=== PATIENT | male | born 1960 | race Caucasian/White ===

== ENCOUNTER → 2016-10-06 | Outpatient (CLI) | payer OTHER ==
[~2016-10-06] MED LIST: ASPI81TA28 PO; ATOR-24 PO; B-COTAB18; CLOP1TAB15 PO; DLN/100 PO; DONE1TAB26; LEVO200T PO; LEVO300T2 PO; LISI1TAB3 PO; PHN/100 PO; PRLSR20 PO
[2016-10-06 09:25] LABS: BASO % 0.3 %; BASO ABS # 0.02 K/uL (0-0.2); COMPLETE YES; EOS % 6.8 %; HEMATOCRIT 43.3 % (42-52); IG% 0.3 %; LYMPH % 28.1 %; LYMPH ABS # 1.85 K/uL (1.2-3.4); MEAN CELL VOLUME 87.7 fL (80-100); MEAN CORPUSCULAR HEMOGLOBIN 30.6 pg (25-34); MEAN CORPUSCULAR HGB CONC 34.9 g/dl (32-36); MEAN PLATELET VOLUME 8.8 fL (7.4-10.4); MONO % 6.4 %; NEUT % 58.1 %; PLATELET COUNT 159 K/uL (130-400); RED BLOOD COUNT 4.94 M/uL (4.7-6.1); WHITE BLOOD COUNT 6.59 K/uL (4.8-10.8)
[2016-10-06 09:42] LABS: ALT/SGPT 27 U/L (12-78); BLOOD UREA NITROGEN 24 mg/dl (7-18); BUN/CREATININE RATIO 25.5 (10-20); CALCIUM 8.9 mg/dl (8.5-10.1); CARBON DIOXIDE 26 mmol/L (21-32); CHLORIDE 107 mmol/L (98-107); CHOLESTEROL 186 mg/dl (0-200); CREATININE 0.95 mg/dl (0.60-1.40); ESTIMATED AVERAGE GLUCOSE 111 mg/dl; GLUCOSE 104 mg/dl (70-99); HA1C FLAG Normal (Normal); POTASSIUM 4.2 mmol/L (3.5-5.1); SODIUM 140 mmol/L (136-145)
[2016-10-06 09:53] LABS: ALKALINE PHOSPHATASE 88 U/L (45-117); AST/SGOT 16 U/L (15-37); CHOLESTEROL/HDL RATIO 4.2; HDL CHOLESTEROL 44 mg/dl; LDL CHOLESTEROL CALCULATED 121 mg/dl; TRIGLYCERIDES 106 mg/dl (0-150); VERY LOW DENSITY LIPOPROT CALC 21 mg/dl
== END | disposition home or self-care (01) ==
LOC: C.LAB1850 07:07
PROVIDERS: ATTEND Family Medicine
DX: I10 Essential (primary) hypertension (principal); G40.909 Epilepsy, unspecified, not intractable, without status epilepticus; E78.5 Hyperlipidemia, unspecified; E03.9 Hypothyroidism, unspecified; R73.03 Prediabetes

== ENCOUNTER → 2017-05-03 | Outpatient (CLI) | payer OTHER ==
[2017-05-03 09:50] LABS: ALT/SGPT 23 U/L (12-78); BLOOD UREA NITROGEN 18 mg/dl (7-18); BUN/CREATININE RATIO 18.9 (10-20); CALCIUM 8.8 mg/dl (8.5-10.1); CARBON DIOXIDE 26 mmol/L (21-32); CHLORIDE 107 mmol/L (98-107); CREATININE 0.94 mg/dl (0.60-1.40); GLUCOSE 110 mg/dl (70-99); POTASSIUM 4.2 mmol/L (3.5-5.1); SODIUM 140 mmol/L (136-145)
[2017-05-03 10:00] LABS: ALB/GLOB RATIO 1.1 (0.9-2); ALKALINE PHOSPHATASE 79 U/L (45-117); AST/SGOT 17 U/L (15-37); CHOLESTEROL 180 mg/dl (0-200); CHOLESTEROL/HDL RATIO 3.9; HDL CHOLESTEROL 46 mg/dl; LDL CHOLESTEROL CALCULATED 111 mg/dl; TRIGLYCERIDES 113 mg/dl (0-150); VERY LOW DENSITY LIPOPROT CALC 23 mg/dl
[2017-05-03 10:55] LABS: ESTIMATED AVERAGE GLUCOSE 111 mg/dl; HA1C FLAG Normal (Normal)
== END | disposition home or self-care (01) ==
LOC: C.LAB1850 06:50
PROVIDERS: ATTEND Family Medicine
DX: E78.5 Hyperlipidemia, unspecified (principal); E03.9 Hypothyroidism, unspecified; R73.03 Prediabetes; I10 Essential (primary) hypertension; Z11.59 Encounter for screening for other viral diseases

== ENCOUNTER → 2017-05-26 | Outpatient (CLI) | payer OTHER ==
--- NOTE | 2017-05-26 13:22 | DIAGNOSTIC IMAGING REPORT ---
R VENOUS DOPP LOWER EXT UNILAT CLINICAL HISTORY: Right leg swellingdistal right lower extremity swelling TECHNIQUE: Ultrasound COMPARISON STUDY: None FINDINGS: Series negative for deep venous thrombosis. Compressibility and augmentation characteristics are unremarkable. There are findings of superficial thrombophlebitis involving the greater saphenous vein from the knee to ankle. IMPRESSION: 1. Superficial thrombophlebitis involving the lower greater saphenous vein . 2. Study is negative for deep venous thrombosis. The above report was generated using voice recognition software. It may contain grammatical, syntax or spelling errors. Electronically signed by: Kb Craven M.D. 05/26/2017 1:21 PM Dictated Date/Time: 05/26/2017 1:20 PM
== END | disposition home or self-care (01) ==
LOC: C.ULTRBC 12:40
PROVIDERS: ATTEND Neuromusculoskeletal Medicine & OMM
DX: M79.89 Other specified soft tissue disorders (principal); I80.01 Phlebitis and thrombophlebitis of superficial vessels of right lower extremity

== ENCOUNTER 2017-09-24 18:34 | Emergency (ER) | payer OTHER ==
[~2017-09-24] VITALS: Ht 182.9 cm; Wt 138.4 kg
[~2017-09-24 18:34] MED LIST changes: -DONE1TAB26; +DONE1TAB26 PO
[2017-09-24 18:39] VITALS: TEMP 36.9; Ht 182.9 cm; Wt 138.4 kg
--- NOTE | 2017-09-24 19:07 | EMERGENCY ROOM VISIT NOTE ---
History Report prepared by Jerry: Richie Armenta Under the Supervision of: Dr. Timo Joiner M.D. First contact with patient: 18:44 Chief Complaint: LEG PAIN,LEG INJURY Stated Complaint: RT LEG PAIN, WARM TO TOUCH History of Present Illness The patient is a 56 year old white male with a past medical history of blood clots, HTN, HLD, CVA, GERD, seizures, and memory loss who presents to the ED with a cc of constant right leg bruising beginning last night. The patient states he was recently on a 3 hour long car trip a couple of days ago. He states that he noticed last night he started to experience symptoms that were similar to his previous blood clots. Positive right leg erythema, right leg warmth. Negative SOB, chest pains, nausea, vomiting. The patient states that he had a similar experience in the past, which he was prescribed Fondaparinux for 45 days for. He reports he was taken off the medication without an ultrasound follow up. The patient states he takes Aspirin and Plavix for his history of a stroke, which he has visual deficits from. Source of History: patient Onset: last night Position: leg (right) Quality: other (bruising) Timing: constant Associated Symptoms: No chest pain, No SOB, No nausea, No vomiting Note: Associated symptoms: right leg erythema and warmth Review of Systems See HPI for pertinent positives and negatives. A total of ten systems were reviewed and were otherwise negative. Past Medical & Surgical Medical Problems: (1) Acute Venous Embolism & Thrombosis Unsp Deep Vessels Of Le (2) Anemia Nos (3) Cerebral Art Occlusion Nos Wo Cerebral Infarction (4) Diab Zakiya Wo Compl, Type Ii Or Unspec Type, Not Uncntrld (5) Hypertension Nos Family History Patient reports no known family medical history. Social History Smoking Status: Former Smoker Alcohol Use: none Marital Status: Housing Status: lives with family Occupation Status: employed Current/Historical Medications Scheduled Aspirin (Aspirin Ec), 81 MG PO DAILY Clopidogrel (Plavix), 75 MG PO DAILY Donepezil Hydrochloride (Donepezil Hcl), 10 MG PO QAM Ferrous Sulfate (Kp Ferrous Sulfate), 325 MG PO MWF Levothyroxine Sodium (Levothyroxine Sodium), 375 MCG PO DAILY Lisinopril (Zestril), 40 MG PO QAM Omeprazole (Prilosec), 20 MG PO BID Phenytoin Sodium (Dilantin), 200 MG PO QAM Phenytoin Sodium (Dilantin), 200 MG PO HS Rivaroxaban (Xarelto), 10 MG PO DAILY Simvastatin (Zocor), 40 MG PO HS Miscellaneous Medications B-Complex Vitamins (Vitamin B Complex) Allergies Coded Allergies: No Known Allergies (Unverified , 09/24/17) Physical Exam Vital Signs Date Time Temp Pulse Resp B/P (MAP) Pulse Ox O2 Delivery O2 Flow Rate FiO2 09/24/17 21:42 53 20 135/69 95 Room Air 09/24/17 20:22 53 20 133/84 93 Room Air 09/24/17 18:39 36.9 74 20 157/88 95 Room Air Physical Exam GENERAL: Obese, wears glasses, awake, alert, well-appearing, NAD HENT: Normocephalic, atraumatic. EYES: Normal conjunctiva. Sclera non-icteric. NECK: Supple. No nuchal rigidity. FROM. RESPIRATORY: CTAB, no rhonchi, wheezing, crackles CARDIAC: RRR, no MRG ABDOMEN: Soft, NTND, BS+ MSK: No chest wall TTP, 1-2+ pitting edema RLE, no erythema, no calf pain. NEURO: GCS 15, CN 2-12 intact, moves all 4s on command SKIN: No rash or jaundice noted. [facility] Medical Decision & Procedures ER Provider Diagnostic Interpretation: Radiology results as stated below per my review and radiologist interpretation: R VENOUS DOPP LOWER EXT UNILAT CLINICAL HISTORY: 56 years-old Male presenting with prior h/o DVT in RLE, now w/ swelling, recent car travel. TECHNIQUE: Real-time grayscale and color and spectral Doppler ultrasound imaging of the veins of the right lower extremity was performed. Compression and augmentation were also utilized. COMPARISON: 05/26/2017. FINDINGS: Right: Common femoral vein: Patent. Greater saphenous vein: Filling defect consistent with chronic thrombus in the greater saphenous vein extending from the calf. This appears nearly occlusive. Deep femoral vein: Patent. Femoral vein: Patent. Popliteal vein: Patent. Calf veins: Limited visualization. Other: None. IMPRESSION: 1. No evidence of deep venous thrombosis. 2. Chronic superficial venous thrombosis in the greater saphenous vein. Electronically signed by: Brent Fernandes M.D. 09/24/2017 9:05 PM Dictated Date/Time: 09/24/2017 9:03 PM Laboratory Results 09/24/17 18:08 Red Blood Count 4.60, Mean Corpuscular Volume 88.0, Mean Corpuscular Hemoglobin 31.1, Mean Corpuscular Hemoglobin Concent 35.3, Mean Platelet Volume 8.5, Neutrophils (%) (Auto) 53.9, Lymphocytes (%) (Auto) 32.5, Monocytes (%) (Auto) 6.7, Eosinophils (%) (Auto) 6.1, Basophils (%) (Auto) 0.4, Neutrophils # (Auto) 3.79, Lymphocytes # (Auto) 2.29, Monocytes # (Auto) 0.47, Eosinophils # (Auto) 0.43, Basophils # (Auto) 0.03 09/24/17 18:08 Test 09/24/17 18:08 White Blood Count 7.04 K/uL (4.8-10.8) Red Blood Count 4.60 M/uL (4.7-6.1) Hemoglobin 14.3 g/dL (14.0-18.0) Hematocrit 40.5 % (42-52) Mean Corpuscular Volume 88.0 fL (80-100) Mean Corpuscular Hemoglobin 31.1 pg (25-34) Mean Corpuscular Hemoglobin Concent 35.3 g/dl (32-36) Platelet Count 154 K/uL (130-400) Mean Platelet Volume 8.5 fL (7.4-10.4) Neutrophils (%) (Auto) 53.9 % Lymphocytes (%) (Auto) 32.5 % Monocytes (%) (Auto) 6.7 % Eosinophils (%) (Auto) 6.1 % Basophils (%) (Auto) 0.4 % Neutrophils # (Auto) 3.79 K/uL (1.4-6.5) Lymphocytes # (Auto) 2.29 K/uL (1.2-3.4) Monocytes # (Auto) 0.47 K/uL (0.11-0.59) Eosinophils # (Auto) 0.43 K/uL (0-0.5) Basophils # (Auto) 0.03 K/uL (0-0.2) RDW Standard Deviation 47.4 fL (36.4-46.3) RDW Coefficient of Variation 14.8 % (11.5-14.5) Immature Granulocyte % (Auto) 0.4 % Immature Granulocyte # (Auto) 0.03 K/uL (0.00-0.02) Prothrombin Time 10.5 SECONDS (9.0-12.0) Prothromb Time International Ratio 1.0 (0.9-1.1) Activated Partial Thromboplast Time 24.5 SECONDS (21.0-31.0) Partial Thromboplastin Ratio 0.9 Anion Gap 6.0 mmol/L (3-11) Est Creatinine Clear Calc Drug Dose 108.5 ml/min Estimated GFR () 88.2 Estimated GFR (Non- 76.1 BUN/Creatinine Ratio 22.3 (10-20) Calcium Level 9.0 mg/dl (8.5-10.1) Total Bilirubin 0.2 mg/dl (0.2-1) Direct Bilirubin < 0.1 mg/dl (0-0.2) Aspartate Amino Transf (AST/SGOT) 15 U/L (15-37) Alanine Aminotransferase (ALT/SGPT) 25 U/L (12-78) Alkaline Phosphatase 80 U/L (45-117) Total Protein 6.9 gm/dl (6.4-8.2) Albumin 3.5 gm/dl (3.4-5.0) Lipase 114 U/L (73-393) Laboratory results reviewed by ms ED Course 1851: The patient was evaluated in room A11B. A complete history and physical exam was performed. 2126: I reevaluated the patient and he is okay with oral medication. I discussed the results and treatment plan. He agrees to the plan and is ready for discharge after medication administration. Medical Decision Triage Nursing notes reviewed. Prior records reviewed. The patient is a 56 year old white male with a past medical history of DVT, HTN , HLD, CVA, GERD, seizures, and memory loss who presents to the ED with a cc of constant right leg bruising beginning last night. The patient's presentation and history were concerning for etiologies such as DVT, musculoskeletal, infection, joint effusion, trauma, lymphedema, idiopathic , CHF, as well as others were entertained. Patient was seen and evaluated at the bedside. Patient was concerned that he was developing a blood clot. Patient did state that he did have recent car travel that did take more than several hours as he did drive to [place] for an appointment for his . The patient has had DVT 2 in the past. Patient also does take aspirin and Plavix for a prior history of CVA. 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 Patient also does have some memory problems for which she does take donepezil. Patient was on fondaparinux the last time he had his DVT which is in May. He was taken off this after about 45 days treatment. He did not have any repeat ultrasound. Patient does have some notable swelling in his right lower extremity. Patient otherwise is very well-appearing does not complain of any chest pain or shortness of breath. Patient did have blood work completed along with a DVT ultrasound. Patient's blood work was fairly unremarkable. Patient ultrasound did show a chronic superficial thrombosis of the greater saphenous vein. This would be considered in SVT. Given the patient has had recurrence of this I did discuss options. We will start him on Xarelto 10 mg for 45 days. The patient is planning to see his primary care physician within the week. Patient was also told to hold his aspirin for the time being while he is taking Plavix and Xarelto. Patient was given a first dose here. Patient was told to return if he had any shortness of breath, hemoptysis, chest pains or worsening lower extremity swelling. Patient was also given tips for how to help with his lower extremely swelling. Patient was deemed suitable for outpatient follow-up treatment at this time. Patient was given strict follow-up, discharge, and return precautions. All questions were answered. Patient was deemed suitable for outpatient follow-up at this time. Patient agreed with the plan of care and was safely discharged home. Medication Reconcilliation Current Medication List: was personally reviewed by me Blood Pressure Screening Patient's blood pressure: Normal blood pressure Impression Primary Impression: Chronic superficial venous thrombosis of lower extremity Additional Impression: Swelling of right lower extremity Scribe Attestation The scribe's documentation has been prepared under my direction and personally reviewed by me in its entirety. I confirm that the note above accurately reflects all work, treatment, procedures, and medical decision making performed by me. Departure Information Dispostion Home / Self-Care Prescriptions Rivaroxaban (XARELTO) 10 Mg Tab 10 MG PO DAILY for 45 Days, #45 TAB Prov: Timo Joiner M.D. 09/24/17 Referrals Moody Dolan D.O. (PCP) Patient Instructions ED Leg Swelling Unilateral, ED RICE, [facility] Additional Instructions Please return to the emergency department if you have worsening or recurrent symptoms not amenable to at-home treatment. Please call for a follow-up appointment with her primary care physician. Please take your medications as prescribed. If you have other concerns and/or complaints please feel free to also call your primary care physician's office or return the ED for further evaluation, management, and treatment. You may take tylenol 650 mg every 6 hours as needed for pain. Please stop taking her aspirin until at least you follow-up with your primary care physician. You may continue to take Xarelto and Plavix. Please return if you have shortness of breath, chest pain, or coughing up blood. Take your medications as prescribed. You have been examined and treated today on an emergency basis only. This is not a substitute for, or an effort to provide, complete comprehensive medical care. It is impossible to recognize and treat all injuries or illnesses in a single emergency department visit. It is therefore important that you follow up closely with [facility], your PCP, and/or your specialist(s). Call as soon as possible for an appointment. Thank you for your time and consideration. I look forward to speaking with you again soon. Please don't hesitate to call us if you have any questions. Problem Qualifiers Primary Impression: Chronic superficial venous thrombosis of lower extremity Laterality: right Qualified Codes: I82.811 - Embolism and thrombosis of superficial veins of right lower extremity
[2017-09-24 19:19] LABS: BASO % 0.4 %; BASO ABS # 0.03 K/uL (0-0.2); EOS % 6.1 %; EOS ABS # 0.43 K/uL (0-0.5); HEMATOCRIT 40.5 % (42-52); HEMOGLOBIN 14.3 g/dL (14.0-18.0); IG# 0.03 K/uL (0.00-0.02); LYMPH % 32.5 %; LYMPH ABS # 2.29 K/uL (1.2-3.4); MEAN CORPUSCULAR HEMOGLOBIN 31.1 pg (25-34); MEAN CORPUSCULAR HGB CONC 35.3 g/dl (32-36); MEAN PLATELET VOLUME 8.5 fL (7.4-10.4); MONO % 6.7 %; MONO ABS # 0.47 K/uL (0.11-0.59); NEUT % 53.9 %; NEUT ABS # 3.79 K/uL (1.4-6.5); PLATELET COUNT 154 K/uL (130-400); RED CELL DISTRIBUTION WIDTH CV 14.8 % (11.5-14.5); RED CELL DISTRIBUTION WIDTH SD 47.4 fL (36.4-46.3); WHITE BLOOD COUNT 7.04 K/uL (4.8-10.8)
[2017-09-24 19:27] LABS: PTT PATIENT 24.5 SECONDS (21.0-31.0)
[2017-09-24] MEDS ORDERED: FERR1TAB13 PO (19:31)
[2017-09-24] MEDS ORDERED: LEVO125T5 PO (19:31)
[2017-09-24] MEDS ORDERED: SIMV40TA2 PO (19:31)
[2017-09-24] MEDS ORDERED: LISI40TA PO (19:31)
[2017-09-24 19:38] LABS: ALBUMIN 3.5 gm/dl (3.4-5.0); BLOOD UREA NITROGEN 24 mg/dl (7-18); CARBON DIOXIDE 27 mmol/L (21-32); CREATININE 1.07 mg/dl (0.60-1.40); GLUCOSE 94 mg/dl (70-99); LIPASE 114 U/L (73-393); SODIUM 139 mmol/L (136-145)
[2017-09-24 19:41] LABS: ALKALINE PHOSPHATASE 80 U/L (45-117); ALT/SGPT 25 U/L (12-78); AST/SGOT 15 U/L (15-37); TOTAL PROTEIN 6.9 gm/dl (6.4-8.2)
--- NOTE | 2017-09-24 21:06 | DIAGNOSTIC IMAGING REPORT ---
R VENOUS DOPP LOWER EXT UNILAT CLINICAL HISTORY: 56 years-old Male presenting with prior h/o DVT in RLE, now w/ swelling, recent car travel. TECHNIQUE: Real-time grayscale and color and spectral Doppler ultrasound imaging of the veins of the right lower extremity was performed. Compression and augmentation were also utilized. COMPARISON: 05/26/2017. FINDINGS: Right: Common femoral vein: Patent. Greater saphenous vein: Filling defect consistent with chronic thrombus in the greater saphenous vein extending from the calf. This appears nearly occlusive. Deep femoral vein: Patent. Femoral vein: Patent. Popliteal vein: Patent. Calf veins: Limited visualization. Other: None. IMPRESSION: 1. No evidence of deep venous thrombosis. 2. Chronic superficial venous thrombosis in the greater saphenous vein. Electronically signed by: Brent Fernandes M.D. 09/24/2017 9:05 PM Dictated Date/Time: 09/24/2017 9:03 PM
[2017-09-24] MEDS ORDERED: RIVAROXABAN 20 MG TAB PO STA (21:31)
[2017-09-24 21:42] VITALS: BP 135/69; PULSE 53; O2SAT 95
[2017-09-24] MEDS ORDERED: RIVA1TAB PO (21:50)
== END 2017-09-24 22:00 | disposition home or self-care (01) ==
LOC: C.EDB 18:35 → C.EDA 22:00
DX: I82.811 Embolism and thrombosis of superficial veins of right lower extremity (principal); R60.0 Localized edema; I10 Essential (primary) hypertension; E78.5 Hyperlipidemia, unspecified; K21.9 Gastro-esophageal reflux disease without esophagitis; I69.398 Other sequelae of cerebral infarction; H53.40 Unspecified visual field defects; D64.9 Anemia, unspecified; E11.9 Type 2 diabetes mellitus without complications; Z86.718 Personal history of other venous thrombosis and embolism; Z87.891 Personal history of nicotine dependence; Z79.82 Long term (current) use of aspirin; Z79.01 Long term (current) use of anticoagulants

== ENCOUNTER → 2017-11-12 | Outpatient (CLI) | payer OTHER ==
[~2017-11-12] MED LIST changes: -ATOR-24 PO; +FERR1TAB13 PO; +LEVO125T5 PO; -LEVO200T PO; -LEVO300T2 PO; -LISI1TAB3 PO; +LISI40TA PO; +RIVA1TAB PO; +SIMV40TA2 PO
[2017-11-12 10:07] LABS: ALT/SGPT 29 U/L (12-78); BLOOD UREA NITROGEN 15 mg/dl (7-18); CARBON DIOXIDE 30 mmol/L (21-32); CREATININE 0.94 mg/dl (0.60-1.40); GLUCOSE 107 mg/dl (70-99); POTASSIUM 4.3 mmol/L (3.5-5.1); SODIUM 138 mmol/L (136-145)
[2017-11-12 10:18] LABS: CHOLESTEROL 155 mg/dl (0-200); LDL CHOLESTEROL CALCULATED 93 mg/dl
== END ==
LOC: C.LABBC 07:49
PROVIDERS: ATTEND Family Medicine
DX: I10 Essential (primary) hypertension (principal); E78.5 Hyperlipidemia, unspecified; E03.9 Hypothyroidism, unspecified; G40.909 Epilepsy, unspecified, not intractable, without status epilepticus; Z00.00 Encounter for general adult medical examination without abnormal findings; Z12.5 Encounter for screening for malignant neoplasm of prostate

== ENCOUNTER 2023-10-27 10:24 | Inpatient (IN) ==
[2023-10-27 11:12] LABS: Basophils # (auto) 0.02 K/uL (0.00-0.20); Basophils % (auto) 0.4 %; Eosinophils # (auto) 0.26 K/uL (0.00-0.50); Eosinophils % (auto) 4.7 %; Hematocrit (blood only) 41.2 % (42.0-52.0); Hemoglobin 13.9 g/dl (14.0-18.0); Immature Granulocytes # (auto) 0.01 K/uL (0.01-0.20); Immature Granulocytes % (auto) 0.2 %; Lymphocytes # (auto) 1.84 K/uL (1.20-3.40); Lymphocytes % (auto) 33.2 %; Mean Corpuscular Hemoglobin 29.8 pg (25.0-34.0); Mean Corpuscular Hgb Conc 33.7 g/dL (32.0-36.0); Mean Corpuscular Volume 88.2 fL (80.0-100.0); Monocytes # (auto) 0.31 K/uL (0.11-0.59); Monocytes % (auto) 5.6 %; Neutrophils # (auto) 3.11 K/uL (1.40-6.50); Neutrophils % (auto) 55.9 %; Platelet Count 156 K/uL (130-400); RDW Coefficient of Variation 15.5 % (11.5-14.5); Red Blood Count 4.67 M/uL (4.70-6.10); White Blood Count 5.55 K/ul (4.8-10.8)
[2023-10-27 11:26] LABS: Alanine Aminotransferase 11 U/L (7-52); Albumin Globulin Ratio 1.4 (0.9-2); Albumin Level 3.9 gm/dl (3.4-5.0); Alkaline Phosphatase 78 U/L (34-104); Anion Gap 4 (3-11); Aspartate Aminotransferase 15 U/L (13-39); Bilirubin,Total 0.5 mg/dl (0.2-1.0); Blood Urea Nitrogen 19 mg/dl (6-23); Calcium 9.6 mg/dl (8.6-10.3); Carbon Dioxide 31 mmol/L (21-32); Chloride 106 mmol/L (98-107); Est GFR (African American) 97.7 ml/min; Est GFR (Non-African American) 84.3 ml/min; Globulin 2.7 gm/dl (2.5-4.0); Glucose 99 mg/dl (70-99(Fasting)); Potassium 4.1 mmol/L (3.5-5.1); Sodium 141 mmol/L (136-145); Total Protein 6.6 gm/dl (6.0-8.3)
[2023-10-27 11:28] LABS: Troponin I High Sensitivity 5.2 pg/ml (0-20)
--- NOTE | 2023-10-27 11:28 | XRay Report ---
XR chest 1V not portable HISTORY: 62 years-old Male Chest pain, nonspecific COMPARISON: 05/14/2022 TECHNIQUE: PA view of the chest FINDINGS: Cardiac silhouette is enlarged. Large hiatal hernia. No pneumothorax, pleural effusion or overt pulmo nary edema. Mild bibasilar atelectasis. Calcified edema within the lungs. Bones appear grossly intact . IMPRESSION: 1. Cardiomegaly without acute process. 2. Large hiatal hernia. ACT 112: Negative or not required by law. The above report was generated using voice recognition software. It may contain grammatical, syntax o r spelling errors. Electronically signed by: Andre Mayfield M.D. 10/27/2023 11:26 AM
[2023-10-27 11:33] LABS: Partial Thromboplastin Ratio 0.9; Partial Thromboplastin Time 24 Seconds (21-31); Prothrombin Time 11.1 Seconds (9.0-12.0)
--- NOTE | 2023-10-27 12:43 | Emergency Department Note ---
Impression & Plan Complicated urinary tract infection, Elevated TSH, Confusion, Leg swelling ED Provider Note NAME: ARIANNE DICKERSON AGE: 62 SEX: M : 1960 ARRIVES VIA: Walk-In INFORMANT: Patient, ED PROVIDER(S): Timo Joiner MD CHIEF COMPLAINT: Confusion, slurred speech, weakness, elevated TSH, leg swelling, hallucinations MEDICAL DECISION MAKING: Patient presents due to concern for the above. IV was established and blood work was obtained. VBG ammonia urinalysis CT head and CT angiography of the head and neck were ordered. Blood shows a normal white count with a hemoglobin of 13.9 virtually normal with a normal platelet count kidney function is unremarkable. ABG with hypercarbia but normal VBG pH kidney function is unremarkable with normal electrolytes. BNP troponin not elevated ammonia is not elevated. Urinalysis does show concern for infection given the patient's positive for nitrites leuks and whites with no significant epithelial cells. Chest x-ray without pneumonia. Patient CT angiography of the neck is negative CT angiography of the head shows old left occipital infarct. CT of the head shows no acute ICH. Given the chronicity of the patient's symptoms I did speak with the on-call hospitalist service and the patient was admitted by Dr. Lebron. Discussion w/ other healthcare providers: Hany Dawn PA-C and Dr. Lebron inpatient medicine service Prior /Outside records reviewed: None Differential diagnosis: Infection, dehydration, metabolic abnormality, hypo/hyperglycemia, electrolyte imbalance, anemia, UTI, pneumonia, thyroid dysfunction among others were considered. Diagnostics, as interpreted by me: ECG: Likely sinus with possible junctional with a ventricular rate rate of 52 normal QRS duration, left axis deviation no obvious ST elevations Cardiac monitoring: An order was placed for continuous cardiac monitoring. The monitor shows a rate of 53 with regular rhythm. Patient was placed on pulse oximetry Medical decision rules: None Imaging studies: I informally interpreted the patient's Chest x-ray which does not show obvious pneumonia or pneumothorax. with formal report to follow. HPI: Patient does present for multiple complaints. The patient reportedly has had some increasing weakness confusion and slurred speech was developed over the weekend. The patient had been seen in the outpatient setting did have blood work completed was noted to have an elevated TSH. The patient does take thyroxine replacement. Patient reportedly is not super compliant with medications but the patient significant other bedside has been ensuring that the patient is receiving his medications this week. Patient admits to not being fully compliant all the time. Patient reportedly has been hallucinating having full on conversations with people that are not there. The patient denies any head or neck pain. Patient does have a prior history of stroke in the early . The patient does have deficits of visual field deficits as well as numbness in the foot. Patient has also noticed bilateral lower extremity swelling but it is worse in the right. The patient does have a prior history of DVT and had been on blood thinners for a period of time but no longer does. Patient was so weak that he slumped into his but did not fall to the ground. No head strike or LOC. PAST MEDICAL HISTORY: See Below PAST SURGICAL HISTORY: See Below SOCIAL HISTORY: See Below HOME MEDICATIONS: See Below ALLERGIES: See Below VITALS: See Below PHYSICAL EXAMINATION: GENERAL: NAD, non-toxic. Wearing glasses EYE EXAM: Normal conjunctiva. PERRL, no anisocoria and EOM's grossly intact w/o pain. OROPHARYNX: Moist mucus membranes, grossly normal dentition. NECK: Trachea midline, no stridor. LUNGS: Clear to auscultation. Normal chest wall mechanics. HEART: NSR, no MRG. ABDOMEN: Abdomen soft, non-tender, no masses, no rebound or guarding. BACK: No CVA TTP. SKIN: No rashes and no bruising. UPPER EXTREMITIES: Upper extremities are grossly normal. LOWER EXTREMITIES: Grossly normal, bilateral lower extremity edema right greater than left. NEURO EXAM: A&O x3, cranial nerves II-XII grossly intact, normal speech, moves all 4 extremities. Good [id number]. Past Med/Surg History Medical History History of BPH Hyperlipidemia Methylenetetrahydrofolate reductase deficiency Allergic rhinitis seasonal Superficial thrombophlebitis Deep vein blood clot of right lower extremity twice, ~4-5 years ago, came to [place] ER>on plavix and baby aspirin>f/u dr mares, [place] GERD (gastroesophageal reflux disease) Hypothyroid Seizure 2003, within 3 weeks from the 1 year anniversary of his stroke, Gran Mal seizure>due to his stroke Hypertension CVA (cerebral vascular accident) 2002, [facility] [place]>25% blind in both eyes, short term memory loss, numbness tingling 2 fingers in RT hand, numbness in rt foot-residual symptoms; f/u PCP Surgical History History of esophagogastroduodenoscopy (EGD) Hx of colonoscopy History of repair of hiatal hernia original sx 03/1996; pt currently has a tear in the lining and his pancreas and stomach "float freely in his chest cavity" History of arthrodesis (1971) L4-L5 History of back surgery once at age 9 H/O hemorrhoidectomy Family History Father Acute myocardial infarction Myocardial infarction Grandmother (Maternal) Diabetes Family/Other Diabetes Mother Diabetes Brother COPD (chronic obstructive pulmonary disease) Congestive heart failure Brother No problems noted. Sister No problems noted. Son No problems noted. Daughter No problems noted. Denies family history of Colon cancer Ovarian cancer Prostate cancer Breast cancer Social History Smoking Status: Never smoker Age Quit Using Tobacco: 27; Second Hand Exposure: No; Do You Dip or Chew Tobacco: No; Hx Alcohol Use: No ("not for the last 35-40 years") Hx Substance Use: No Preferred Language: Guatemalan Communication Ability: Effective Visual Impairment: Limited Hearing Ability: Normal [employer] Required: No Beliefs That Will Affect Care: None marital status: Current Living Situation: Spouse current occupational status: retired current occupation: [employer] How many Children do You have: 2 Feels Safe at Home: Yes Childhood Exposure to Second-Hand Smoke: Yes Diet: regular Diet Comment: regular caffeine: Yes during the past year weight has: remained stable Dental Care, Regularly: Yes Physical Activity Frequency: Daily Seatbelt Use: always Sunscreen Use: No Assistive Devices: Glasses Allergies Allergies Allergy/AdvReac Type Severity Reaction Status Date / Time No Known Drug Allergies Allergy Unknown Verified 10/27/23 14:53 Home Meds Home Medications Medication Instructions Recorded Confirmed aspirin 81 mg chewable tablet 81 mg PO QAM 05/14/22 10/27/23 tadalafil 20 mg tablet (Cialis) 20 mg PO UD PRN sexual activity 05/14/22 10/27/23 clopidogrel 75 mg tablet 75 mg PO QAM 10/27/23 10/27/23 levothyroxine 25 mcg tablet See Rx Instructions .Route .COMPLEX 10/27/23 10/27/23 levothyroxine 300 mcg tablet See Rx Instructions .Route .COMPLEX 10/27/23 10/27/23 vibegron 75 mg tablet (Gemtesa) 75 mg PO DAILY PRN Issues w/ 10/27/23 10/27/23 Urgency of urination Previous Rx's Medication Instructions Recorded oxybutynin chloride 5 mg 5 mg PO DAILY #7 tabs 05/19/22 tablet,extended release 24 hr (Ditropan XL) simvastatin 40 mg tablet 40 mg PO HS #90 tabs 01/06/23 phenytoin sodium extended 100 mg 200 mg (2 x 100 mg) PO BID #120 01/18/23 capsule caps tamsulosin 0.4 mg capsule 0.4 mg PO QAM #90 caps 03/15/23 lisinopril 40 mg tablet 40 mg PO QAM #90 tabs 05/10/23 omeprazole 20 mg capsule,delayed 20 mg PO BID #180 caps 06/07/23 release Results & Data (ED) Vital Signs Vital Signs - 24 hr 10/27/23 10:28 10/27/23 12:39 10/27/23 15:22 Temperature 36.6 C Temperature Source Temporal Artery Scan Pulse Rate 54 L Pulse Rate [Apical] 48 L 48 L Respiratory Rate 20 22 20 Respiratory Effort / Characteristics Non-Labored Respiratory Depth Normal Blood Pressure 117/72 Blood Pressure [Left Arm] 157/79 H 137/79 Blood Pressure Mean 87 Blood Pressure Mean [Left Arm] 105 98 Pulse Oximetry 93 96 92 Oxygen Delivery Method Room Air Room Air Room Air Sepsis Recent Fever Within 48 Hours No Sepsis New/Unexplained Change in Mental Status No Sepsis Action Taken by Nursing No Action Required Home Medications Current Medication List: was personally reviewed by me Laboratory Data Attestation: I reviewed the patient's lab results. 10/27/23 10:39 10/27/23 10:39 Lab Results 10/27/23 10/27/23 10/27/23 Range/Units 10:39 14:30 Unknown WBC 5.55 (4.8-10.8) K/ul RBC 4.67 L (4.70-6.10) M/uL Hgb 13.9 L (14.0-18.0) g/dl Hct 41.2 L (42.0-52.0) % MCV 88.2 (80.0-100.0) fL MCH 29.8 (25.0-34.0) pg MCHC 33.7 (32.0-36.0) g/dL RDW Std Deviation 50.0 H (36.4-46.3) fL RDW Coeff of Gloria 15.5 H (11.5-14.5) % Plt Count 156 (130-400) K/uL MPV 9.0 L (9.4-12.4) fL Immature Gran % (Auto) 0.2 % Neut % (Auto) 55.9 % Lymph % (Auto) 33.2 % [place] % (Auto) 5.6 % Eos % (Auto) 4.7 % Baso % (Auto) 0.4 % Neut # (Auto) 3.11 (1.40-6.50) K/uL Lymph # (Auto) 1.84 (1.20-3.40) K/uL [place] # (Auto) 0.31 (0.11-0.59) K/uL Eos # (Auto) 0.26 (0.00-0.50) K/uL Baso # (Auto) 0.02 (0.00-0.20) K/uL Immature Gran # (Auto) 0.01 (0.01-0.20) K/uL PT 11.1 (9.0-12.0) Seconds INR 1.0 (0.9-1.1) APTT 24 (21-31) Seconds PTT Ratio 0.9 VBG pH 7.37 (7.36-7.41) VBG pCO2 54 H (38-50) mmHg VBG pO2 21 mmHg VBG HCO3 31 mmol/L VBG O2 Saturation < 60.0 % VBG Base Excess 4.4 mEq/L Sodium 141 (136-145) mmol/L Potassium 4.1 (3.5-5.1) mmol/L Chloride 106 (98-107) mmol/L Carbon Dioxide 31 (21-32) mmol/L Anion Gap 4 (3-11) BUN 19 (6-23) mg/dl Creatinine 0.95 (0.6-1.4) mg/dl Est Cr Clr Drug Dosing Not Reportable Est GFR ( Amer) 97.7 ml/min Est GFR (Non-Af Amer) 84.3 ml/min BUN/Creatinine Ratio 20.0 (10-20) Glucose 99 (70-99(Fasting)) mg/dl Calcium 9.6 (8.6-10.3) mg/dl Total Bilirubin 0.5 (0.2-1.0) mg/dl AST 15 (13-39) U/L ALT 11 (7-52) U/L Alkaline Phosphatase 78 (34-104) U/L Ammonia 13.0 L (18-72) umol/L Troponin I High Sens 5.2 (0-20) pg/ml B-Natriuretic Peptide 51 (0-100) pg/ml Total Protein 6.6 (6.0-8.3) gm/dl Albumin 3.9 (3.4-5.0) gm/dl Globulin 2.7 (2.5-4.0) gm/dl Albumin/Globulin Ratio 1.4 (0.9-2) TSH 5.812 H (0.300-4.500) uIu/ml Free T4 1.02 (0.61-1.60) ng/dl Urine Color Dark Yellow Urine Appearance Clear (Clear) Urine pH 5.5 (4.5-7.5) Ur Specific [place] > 1.045 H (1.000-1.030) Urine Protein Negative (Negative) Urine Glucose (UA) Negative (Negative) Urine Ketones Trace H (Negative) Urine Blood Negative (Negative) Urine Nitrite Positive A (Negative) Urine Bilirubin Negative (Negative) Urine Urobilinogen Negative (Negative) Ur Leukocyte Esterase 1+ H (Negative) Urine WBC (Auto) >30 H (0-5) /hpf Urine RBC (Auto) 0-4 (0-4) /hpf U Hyaline Cast (Auto) 10-30 H (0-5) /lpf U Epithel Cells (Auto) 0-5 (0-5) /lpf Urine Bacteria (Auto) Negative (Negative) Urine Mucus Present A (None Prsent) Urine Yeast Not Reportable Administered Medications Discontinued Medications Ceftriaxone Sodium (Rocephin) 2,000 mg in 50 mls @ 100 mls/hr IV NOW STA Stop: 10/27/23 15:27 Last Admin: 10/27/23 15:15 Dose: 100 mls/hr Documented By: MISAEL Ioversol (Optiray 320 125ml) 119 ml IV ONCE ONE Stop: 10/27/23 13:16 Last Admin: 10/27/23 13:15 Dose: 119 ml Documented By: EDK Imaging Data Radiologist's Impression: Chest X-Ray 10/27/23 10:53 XR chest 1V not portable HISTORY: 62 years-old Male Chest pain, nonspecific COMPARISON: 05/14/2022 TECHNIQUE: PA view of the chest FINDINGS: Cardiac silhouette is enlarged. Large hiatal hernia. No pneumothorax, pleural effusion or overt pulmonary edema. Mild bibasilar atelectasis. Calcified edema within the lungs. Bones appear grossly intact. IMPRESSION: 1. Cardiomegaly without acute process. 2. Large hiatal hernia. ACT 112: Negative or not required by law. The above report was generated using voice recognition software. It may contain grammatical, syntax or spelling errors. Electronically signed by: Andre Mayfield M.D. 10/27/2023 11:[address] 10/27/23 13:04 CT SCAN OF THE BRAIN WITHOUT IV CONTRAST CLINICAL HISTORY: Strokelike symptoms. Slurred speech. COMPARISON STUDY: MRI of the brain dated 07/10/2023. TECHNIQUE: Unenhanced axial CT scan of the brain is performed from the vertex to the skull base. A dose lowering technique was utilized adhering to the principles of ALARA. FINDINGS: Brain parenchyma: Left occipital encephalomalacia is unchanged and consistent with a remote insult. There is age-related involutional change noting minimal microangiopathic disease. There is no hemorrhage, mass effect, or evidence of acute territorial ischemia by CT criteria. Wood-white matter differentiation is preserved. No extra-axial fluid collection is seen. Ventricles, sulci, cisterns: Prominent secondary to involutional change. Intracranial vasculature: There is atherosclerotic calcification of the cavernous carotid arteries. Calvarium: Unremarkable. Sinuses and mastoids: The visualized paranasal sinuses are clear. There are bilateral mastoid effusions. Orbits: The bony orbits are grossly intact. IMPRESSION: There is no hemorrhage, mass effect, or evidence of acute territorial ischemia by CT criteria. ACT 112: Negative or not required by law. Electronically signed by: Juan Jackson M.D. 10/27/2023 1:26 PM Head CTA 10/27/23 13:04 CTA ANGIOGRAPHY OF THE HEAD CLINICAL HISTORY: h/o CVA, slurred speech COMPARISON STUDY: MRI of the brain May 10, 2013. TECHNIQUE: Helical axial images of the head were obtained following uneventful intravenous administration of 119 cc of Optiray. Sagittal and coronal reconstructions were viewed as well as maximal intensity projections on an independent 3-D workstation. Automated exposure control was utilized for the study. A dose lowering technique was utilized adhering to the principles of ALARA. FINDINGS: Encephalomalacia within left occipital lobe represents an old infarct, as shown on MRI July 10, 2013. Mastoid air cells are largely opacified. Mastoid fluid was shown on previous MRI as well. No acute hemorrhage is identified. Ventricular system is unremarkable. Basal cisterns are patent. There are no extra axial collections. The bilateral M1, M2, A1 and A2 segments are patent. There is no intracranial aneurysm. No central vessel occlusion is identified. Left vertebral artery is dominant and patent. Posterior circulation is intact. IMPRESSION: 1. No central vessel occlusion. No intracranial aneurysm. 2. Old left occipital lobe infarct. 3. Bilateral mastoid effusions, likely chronic. ACT 112: Negative or not required by law. Electronically signed by: Misael Marsh M.D. 10/27/2023 1:50 PM Neck CTA 10/27/23 13:04 CT ANGIOGRAPHY OF THE NECK WITH CONTRAST CLINICAL HISTORY: h/o CVA, slurred speech COMPARISON STUDY: Carotid ultrasound July 10, 2013. Technique: CT angiography of the carotid and vertebral arteries was obtained using Optiray and 3D reconstruction on an independent workstation. NASCET criteria was utilized. Automated exposure control was utilized for the study. A dose lowering technique was utilized adhering to the principles of ALARA. CT DOSE: 1458.97 mGy.cm Findings: Visualized portions of the lung apices are unremarkable. 2.1 cm right lobe hypodense thyroid nodule is incidentally noted. No cervical spine fractures are identified. The bilateral common carotid, cervical internal carotid and vertebral arteries are patent. This exam is mildly compromised by artifact. No stenosis, dissection or aneurysm within the major vessels of the neck is identified. Carotid bifurcations are patent. CTA of the head will be reported separately. There is minimal plaque within the proximal left internal carotid artery. IMPRESSION: No stenosis or dissection within the bilateral common carotid, cervical internal carotid or vertebral arteries. ACT 112: Negative or not required by law. Electronically signed by: Misael Marsh M.D. 10/27/2023 1:43 PM Discharge Plan Visit Data Chief Complaint: Referred by Doctor Stated Complaint: SWOLLEN LEGS, HALLUCINATING ED Provider: Timo Joiner Discharge Problem: Complicated urinary tract infection, Elevated TSH, Confusion, Leg swelling Forms Stand Alone Forms: [facility] [employer] Prescriptions Prescriptions: No Action simvastatin 40 mg tablet 40 mg PO HS Qty: 90 1RF phenytoin sodium extended 100 mg capsule 200 mg PO BID Qty: 120 11RF tamsulosin 0.4 mg capsule 0.4 mg PO QAM Qty: 90 3RF lisinopril 40 mg tablet 40 mg PO QAM Qty: 90 3RF Rx Instructions: TAKE 1 TABLET BY MOUTH EVERY DAY omeprazole 20 mg capsule,delayed release(DR/EC) 20 mg PO BID Qty: 180 3RF aspirin 81 mg Tablet,Chewable 81 mg PO QAM tadalafil [Cialis] 20 mg tablet 20 mg PO UD PRN (Reason: sexual activity) Rx Instructions: administer approximately 30min before sexual activity; do not use more than 1 dose per 24hrs oxybutynin chloride [Ditropan XL] 5 mg tablet extended release 24hr 5 mg PO DAILY Qty: 7 0RF clopidogrel 75 mg tablet 75 mg PO QAM Rx Instructions: take 1 tablet by mouth once daily levothyroxine 300 mcg tablet See Rx Instructions .ROUTE .COMPLEX Rx Instructions: Take 300mcg with 25mcg tab for total of 325mcg once every morning levothyroxine 25 mcg tablet See Rx Instructions .ROUTE .COMPLEX Rx Instructions: Take 25mcg with 300mcg tab for total of 325mcg once every morning Gemtesa 75 mg tablet 75 mg PO DAILY PRN (Reason: Issues w/ Urgency of urination) Referrals Referrals: Evon Forte MD [Primary Care Provider] -
[2023-10-27] MEDS: OPTIRAY 320 125ml IV ONE (13:15)
--- NOTE | 2023-10-27 13:27 | CT Scan Report ---
CT SCAN OF THE BRAIN WITHOUT IV CONTRAST CLINICAL HISTORY: Strokelike symptoms. Slurred speech. COMPARISON STUDY: MRI of the brain dated 07/10/2023. TECHNIQUE: Unenhanced axial CT scan of the brain is performed from the vertex to the skull base. A do se lowering technique was utilized adhering to the principles of ALARA. FINDINGS: Brain parenchyma: Left occipital encephalomalacia is unchanged and consistent with a remote insult. T here is age-related involutional change noting minimal microangiopathic disease. There is no hemorrha ge, mass effect, or evidence of acute territorial ischemia by CT criteria. Wood-white matter differen tiation is preserved. No extra-axial fluid collection is seen. Ventricles, sulci, cisterns: Prominent secondary to involutional change. Intracranial vasculature: There is atherosclerotic calcification of the cavernous carotid arteries. Calvarium: Unremarkable. Sinuses and mastoids: The visualized paranasal sinuses are clear. There are bilateral mastoid effusio ns. Orbits: The bony orbits are grossly intact. IMPRESSION: There is no hemorrhage, mass effect, or evidence of acute territorial ischemia by CT marshall ramos. ACT 112: Negative or not required by law. Electronically signed by: Juan Jackson M.D. 10/27/2023 1:26 PM
[2023-10-27 13:31] LABS: Thyroid Stimulating Hormone 5.812 uIu/ml (0.300-4.500)
[2023-10-27 13:35] LABS: T4 Free Thyroxine 1.02 ng/dl (0.61-1.60)
--- NOTE | 2023-10-27 13:45 | CT Scan Report ---
CT ANGIOGRAPHY OF THE NECK WITH CONTRAST CLINICAL HISTORY: h/o CVA, slurred speech COMPARISON STUDY: Carotid ultrasound July 10, 2013. Technique: CT angiography of the carotid and vertebral arteries was obtained using Optiray and 3D rec onstruction on an independent workstation. NASCET criteria was utilized. Automated exposure control was utilized for the study. A dose lowering technique was utilized adhering to the principles of ALA RA. CT DOSE: 1458.97 mGy.cm Findings: Visualized portions of the lung apices are unremarkable. 2.1 cm right lobe hypodense thyroi d nodule is incidentally noted. No cervical spine fractures are identified. The bilateral common ramachandran tid, cervical internal carotid and vertebral arteries are patent. This exam is mildly compromised by artifact. No stenosis, dissection or aneurysm within the major vessels of the neck is identified. Car otid bifurcations are patent. CTA of the head will be reported separately. There is minimal plaque wi thin the proximal left internal carotid artery. IMPRESSION: No stenosis or dissection within the bilateral common carotid, cervical internal carotid or vertebral arteries. ACT 112: Negative or not required by law. Electronically signed by: Misael Marsh M.D. 10/27/2023 1:43 PM
--- NOTE | 2023-10-27 13:52 | CT Scan Report ---
CTA ANGIOGRAPHY OF THE HEAD CLINICAL HISTORY: h/o CVA, slurred speech COMPARISON STUDY: MRI of the brain May 10, 2013. TECHNIQUE: Helical axial images of the head were obtained following uneventful intravenous administr ation of 119 cc of Optiray. Sagittal and coronal reconstructions were viewed as well as maximal inten sity projections on an independent 3-D workstation. Automated exposure control was utilized for the study. A dose lowering technique was utilized adhering to the principles of ALARA. FINDINGS: Encephalomalacia within left occipital lobe represents an old infarct, as shown on MRI Dece [id number]. Mastoid air cells are largely opacified. Mastoid fluid was shown on previous MRI as we ll. No acute hemorrhage is identified. Ventricular system is unremarkable. Basal cisterns are patent. There are no extra axial collections. The bilateral M1, M2, A1 and A2 segments are patent. There is no intracranial aneurysm. No central vessel occlusion is identified. Left vertebral artery is dominan t and patent. Posterior circulation is intact. IMPRESSION: 1. No central vessel occlusion. No intracranial aneurysm. 2. Old left occipital lobe infarct. 3. Bilateral mastoid effusions, likely chronic. ACT 112: Negative or not required by law. Electronically signed by: Misael Marsh M.D. 10/27/2023 1:50 PM
[2023-10-27 14:02] LABS: Appearance Urine Clear (Clear); Bacteria Urine Automated Negative (Negative); Bilirubin Urine Negative (Negative); Blood Urine Negative (Negative); Color Urine Dark Yellow; Epithelial Cell Urine Auto 0-5 /lpf (0-5); Glucose Urine UA Negative (Negative); Ketones Urine Trace (Negative); Leukocyte Esterase Urine 1+ (Negative); Nitrite Urine Positive (Negative); Protein Urine Negative (Negative); RBC Urine Automated 0-4 /hpf (0-4); Specific Gravity Urine > 1.045 (1.000-1.030); Urobilinogen Urine Negative (Negative); WBC Urine Automated >30 /hpf (0-5); pH Urine 5.5 (4.5-7.5)
[2023-10-27 14:13] LABS: Mucus Urine Present (None Prsent)
[2023-10-27 14:47] LABS: Base Excess VBG 4.4 mEq/L; HCO3 VBG 31 mmol/L; Oxygen Saturation VBG < 60.0 %; PCO2 VBG 54 mmHg (38-50); PO2 VBG 21 mmHg; pH VBG 7.37 (7.36-7.41)
[2023-10-27] MEDS: cefTRIAXone SODIUM 2,000 MG/50 ML BAG IV STA (15:15)
--- NOTE | 2023-10-27 15:46 | History & Physical Report ---
Date of Service October 27, 2023 Assessment & Plan (1) Slurred speech: Plan: -Admit to med/tele -Currently stable but with significant slurred speech, difficulty following commands, ambulatory dysfunction, and increased upper extremity weakness causing him to drop items -Symptoms have been progressing over the past 2-3 weeks -Does have hx of previous CVA approximately 20 years ago -Was seen by his PCP on 10/18 for similar but less severe symptoms, TSH and Phenytoin levels were elevated at that time >He resumed his Levothyroxine and TSH today with free T4 are stable > states that Phenytoin dose and frequency were not changed -At this time the patient has many possible etiologies for his neurologic symptoms including recurrent CVA, Phenytoin toxicity, possible UTI, substance abuse, early onset dementia, undiagnosed ASHISH, Narcolepsy -CT head/brain wo con and CTA of the head/neck were negative for acute findings -CXR negative for acute findings -UA is equivocal at this time, will need to follow urine culture -Phenytoin level is in process -ECG today with new junctional rhythm, unsure if he has been having possible arrhythmias causing blood clots and recurrent CVA -Physical exam is inconsistent with meningitis -VBG today with mild pCO2 elevation of 54, ammonia level was negative, no leukocytosis -Will obtain stat MRI of the brain w/wo con -Will obtain TTE -Will add on urine drug screen and tick borne panel -Fall/aspiration/seizure precautions -Dysphagia screen prior to ordering diet -Hold chemical and mechanical DVT PPX until LE venous dopplers and MRI brain results are back -Continue aspirin and plavix for now -AM CBC, CMP, mag, PT/INR (2) Daytime sleepiness: Plan: -Symptoms seem consistent with ASHISH -While patient previously tested negative, he snores often (per ) and does have a large neck -Will order nocturnal pulse oximetry testing tonight (3) Ambulatory dysfunction: Plan: -See slurred speech -PT/OT consulted ordered (4) Leg swelling: Plan: -Does have a previous hx of LLE DVT -Follow BL LE venous dopplers (5) Confusion: Plan: -See slurred speech plan (6) Abnormal urinalysis: Plan: -UA is equivocal at this time -Difficulty to get reliable his from patient regarding urinary symptoms at this time -S/P one dose of Ceftriaxone in the ED -Will continue ceftriaxone for now, follow urine cultures (7) Seizure: Plan: -Family denies recent seizure like activity -Has history of one seizure after his first CVA, has been stable since starting Phenytoin -Called the lab regarding his Phenytoin level, unfortunately it is a send out to [facility] and will not be shipped until tomorrow am >At this time we will reduce his dose from 200 mg BID to 100 mg TID as completely holding it could lead to seizures -Continue seizure precautions (8) Hypothyroid: Plan: -TSH improving, free T4 WNL today -Continue levothyroxine (9) Hypertension: Plan: -Stable -Will allow for permissive HTN until MRI brain results are back -If MRI is negative for CVA, resume lisinopril (10) Memory loss: Plan: -Will restart Donepezil to see if this causes any improvement Plan The patient was discussed with Dr. Lebron at the time of the admission History of Present Illness Chief Complaint: Slurred speech, LE swelling, ambulatory dysfunction Primary Care Provider: Evon Forte MD Bharathi is a 62 year old male with a PMH significant for Seizure disorder (on Phenytoin), BPH, previous CVA, memory loss (on Donepezil), hypothyroidism, HTN, and GERD who presented to the [facility] ED on 10/27/23 with multiple complaints including slurred speech, ambulatory dysfunction, and swollen LEs. His Phenytoin level las week was reportedly 12. He was noted to be bradycardic with HR in the 40-50s but was otherwise stable. Labs were significant for a UA which was nitrite positive with 1+ LE, >30 WBC, 10-30 hayline casts, negative for bacteria, and epithelial cells WNL, and Phenytoin level in process. CT of the head/brain wo con and CTA of the head/neck were read as negative for acute findings. Chest galdino was negative for acute findings. Prior to admission the patient was given a dose of Ceftriaxone. At the time of the exam the patient was sitting in the bedside chair, sleeping, and leaning to the right. His and Daughter were also bedside, the majority of the history was obtained from the patient's and daughter. The patient was easy to rouse, he is slurring his words when speaking. states that over the past 2-3 weeks the patient has been experiencing a number of progressive symptoms including insomnia, increased daytime sleepiness with falling asleep frequently, slurred speech, ambulatory dysfunction, difficulty holding objects, and BL LE swelling. They explain that after the patient's first stroke, approximately 20 years ago he had residual short term memory issues, numbness on the dorsal aspect of the right foot, and residual BL visual loss of approximately 25% in each eye. The patient was seen by his PCP for these complaints on 10/19/23. Per the visit notes, the patient had been non-compliant with his levothyroxine and had run out of his prescription for Donepezil. Blood work was obtained at that time which showed a TSH of 12 without free T4 level. A phenytoin level was also obtained at that time and was elevated at 21. He was restarted on his Levothyroxine and his prescription for Donepezil was supposed to be refilled but there were issues with their previous pharmacy. The patient's states that they have not seen improvement in his symptoms since restarting the levothyroxine, in fact, symptoms have progress. Over the past week he has had multiple episodes of weakness in the BL upper extremities where he will suddenly drop items. He had one fall approximately 4 days ago where he tried to step over his who was on the ground cleaning up a spill. His foot caught her back causing him to fall, he did not hit his head or lose consciousness. The patient states he knows he is slurring his words and has been dropping items recent. He feels off balance when trying to ambulate. He denies recent headache, changes in visions, hearing, taste, smell, neck pain, chest pain, SOB, cough, abd pain, nausea, vomiting, diarrhea, dysuria, hematuria, melena, and other falls besides the one last week. He has felt his BL legs to be getting swollen compared to baseline over the past few weeks. When asked, his confirms that he has been taking his Phenytoin and levothyroxine as prescribed. There were no dosing changes made to his phenytoin after his last PCP visit. They explain that the patient has had issues with remembering the month and year since his last stroke. Prior to his these symptoms he was outside frequently doing yard work and cutting wood for their wood stove. He is a full code and his is his POA. They deny the patient having recent tobacco, alcohol, or other recreational drugs. He was previously tested for ASHISH and was reportedly negative, this was years ago. Please refer to Dr. Lebron's attestation for any changes to the treatment plan Allergies Allergy/AdvReac Type Severity Reaction Status Date / Time No Known Drug Allergies Allergy Unknown Verified 10/27/23 14:53 Home Medications Medication Instructions Recorded Confirmed Type aspirin 81 mg chewable tablet 81 mg PO QAM 05/14/22 10/27/23 History tadalafil 20 mg tablet (Cialis) 20 mg PO UD PRN sexual activity 05/14/22 10/27/23 History oxybutynin chloride 5 mg 5 mg PO DAILY #7 tabs 05/19/22 10/27/23 Rx tablet,extended release 24 hr (Ditropan XL) simvastatin 40 mg tablet 40 mg PO HS #90 tabs 01/06/23 10/27/23 Rx phenytoin sodium extended 100 mg 200 mg (2 x 100 mg) PO BID #120 01/18/23 10/27/23 Rx capsule caps tamsulosin 0.4 mg capsule 0.4 mg PO QAM #90 caps 03/15/23 10/27/23 Rx lisinopril 40 mg tablet 40 mg PO QAM #90 tabs 05/10/23 10/27/23 Rx omeprazole 20 mg capsule,delayed 20 mg PO BID #180 caps 06/07/23 10/27/23 Rx release clopidogrel 75 mg tablet 75 mg PO QAM 10/27/23 10/27/23 History levothyroxine 25 mcg tablet See Rx Instructions .Route .COMPLEX 10/27/23 10/27/23 History levothyroxine 300 mcg tablet See Rx Instructions .Route .COMPLEX 10/27/23 10/27/23 History vibegron 75 mg tablet (Gemtesa) 75 mg PO DAILY PRN Issues w/ 10/27/23 10/27/23 History Urgency of urination Past Med/Surg History Medical History History of BPH Hyperlipidemia Methylenetetrahydrofolate reductase deficiency Allergic rhinitis seasonal Superficial thrombophlebitis Deep vein blood clot of right lower extremity twice, ~4-5 years ago, came to [place] ER>on plavix and baby aspirin>f/u dr mares, [place] GERD (gastroesophageal reflux disease) Hypothyroid Seizure 2003, within 3 weeks from the 1 year anniversary of his stroke, Gran Mal seizure>due to his stroke Hypertension CVA (cerebral vascular accident) 2002, [facility] [place]>25% blind in both eyes, short term memory loss, numbness tingling 2 fingers in RT hand, numbness in rt foot-residual symptoms; f/u PCP Surgical History History of esophagogastroduodenoscopy (EGD) Hx of colonoscopy History of repair of hiatal hernia original sx 03/1996; pt currently has a tear in the lining and his pancreas and stomach "float freely in his chest cavity" History of arthrodesis (1971) L4-L5 History of back surgery once at age 9 H/O hemorrhoidectomy Family History Father Acute myocardial infarction Myocardial infarction Grandmother (Maternal) Diabetes Family/Other Diabetes Mother Diabetes Brother COPD (chronic obstructive pulmonary disease) Congestive heart failure Brother No problems noted. Sister No problems noted. Son No problems noted. Daughter No problems noted. 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 How many Children do You have: 2 Feels Safe at Home: Yes Childhood Exposure to Second-Hand Smoke: Yes Diet: regular Diet Comment: regular caffeine: Yes during the past year weight has: remained stable Dental Care, Regularly: Yes Physical Activity Frequency: Daily Seatbelt Use: always Sunscreen Use: No Assistive Devices: Glasses Physical Exam Physical Exam: Physical Exam: General: In no acute distress, stated age, well-nourished, non-toxic appearing HEENT: Normocephalic, atraumatic, no scleral icterus, pupils around round, symmetrical, and reactive to light, moist mucus membranes, trachea midline, no thyromegaly Chest/Pulm: No respiratory distress, symmetrical chest expansion, clear breath sounds throughout Cardiac: bradycardic rate, regular rhythm , no murmurs noted Abdomen: Negative for ascites and bruising, normoactive bowel sounds, soft, non-tender to palpation throughout Musculoskeletal: Symmetrical and without signs of acute trauma, upper and lower extremities with full ROM, no atrophy, spasticity, or flaccidity Extremities: Radial, dorsalis pedis, and posterior tibial pulses are intact and symmetrical, BL LE's are firm due to swelling Skin: Warm, dry, no rashes , lesions, or scars noted Neuro: Alert and oriented to person and place only (family confirms this is baseline), currently slurring words CN II-XII tested and intact, patient having difficulty following commands for pronator drift and cerebellar testing, no tremors noted Psych: No acute distress, calm and cooperative during the exam Results & Data Results & Data Vital Signs (Past 12 Hours) Vital Signs Temp Pulse Pulse Resp BP BP Pulse Ox 10/27/23 15:22 48 L 20 137/79 92 10/27/23 12:39 48 L 22 157/79 H 96 10/27/23 10:28 36.6 C 54 L 20 117/72 93 O2 Del Method 10/27/23 15:22 Room Air 10/27/23 12:39 Room Air 10/27/23 10:28 Room Air Laboratory Results Abnormal lab results 10/27/23 10/27/23 10/27/23 Range/Units 10:39 14:30 Unknown RBC 4.67 L (4.70-6.10) M/uL Hgb 13.9 L (14.0-18.0) g/dl Hct 41.2 L (42.0-52.0) % RDW Std Deviation 50.0 H (36.4-46.3) fL RDW Coeff of Gloria 15.5 H (11.5-14.5) % MPV 9.0 L (9.4-12.4) fL VBG pCO2 54 H (38-50) mmHg Ammonia 13.0 L (18-72) umol/L TSH 5.812 H (0.300-4.500) uIu/ml Ur Specific [place] > 1.045 H (1.000-1.030) Urine Ketones Trace H (Negative) Urine Nitrite Positive A (Negative) Ur Leukocyte Esterase 1+ H (Negative) Urine WBC (Auto) >30 H (0-5) /hpf U Hyaline Cast (Auto) 10-30 H (0-5) /lpf Urine Mucus Present A (None Prsent) Diagnostic Findings Chest X-Ray 10/27/23 10:53 XR chest 1V not portable HISTORY: 62 years-old Male Chest pain, nonspecific COMPARISON: 05/14/2022 TECHNIQUE: PA view of the chest FINDINGS: Cardiac silhouette is enlarged. Large hiatal hernia. No pneumothorax, pleural effusion or overt pulmonary edema. Mild bibasilar atelectasis. Calcified edema within the lungs. Bones appear grossly intact. IMPRESSION: 1. Cardiomegaly without acute process. 2. Large hiatal hernia. ACT 112: Negative or not required by law. The above report was generated using voice recognition software. It may contain grammatical, syntax or spelling errors. Electronically signed by: Andre Mayfield M.D. 10/27/2023 11:[address] 10/27/23 13:04 CT SCAN OF THE BRAIN WITHOUT IV CONTRAST CLINICAL HISTORY: Strokelike symptoms. Slurred speech. COMPARISON STUDY: MRI of the brain dated 07/10/2023. TECHNIQUE: Unenhanced axial CT scan of the brain is performed from the vertex to the skull base. A dose lowering technique was utilized adhering to the principles of ALARA. FINDINGS: Brain parenchyma: Left occipital encephalomalacia is unchanged and consistent with a remote insult. There is age-related involutional change noting minimal microangiopathic disease. There is no hemorrhage, mass effect, or evidence of acute territorial ischemia by CT criteria. Wood-white matter differentiation is preserved. No extra-axial fluid collection is seen. Ventricles, sulci, cisterns: Prominent secondary to involutional change. Intracranial vasculature: There is atherosclerotic calcification of the cavernous carotid arteries. Calvarium: Unremarkable. Sinuses and mastoids: The visualized paranasal sinuses are clear. There are bilateral mastoid effusions. Orbits: The bony orbits are grossly intact. IMPRESSION: There is no hemorrhage, mass effect, or evidence of acute territorial ischemia by CT criteria. ACT 112: Negative or not required by law. Electronically signed by: Juan Jackson M.D. 10/27/2023 1:26 PM Head CTA 10/27/23 13:04 CTA ANGIOGRAPHY OF THE HEAD CLINICAL HISTORY: h/o CVA, slurred speech COMPARISON STUDY: MRI of the brain May 10, 2013. TECHNIQUE: Helical axial images of the head were obtained following uneventful intravenous administration of 119 cc of Optiray. Sagittal and coronal r econstructions were viewed as well as maximal intensity projections on an independent 3-D workstation. Automated exposure control was utilized for the study. A dose lowering technique was utilized adhering to the principles of ALARA. FINDINGS: Encephalomalacia within left occipital lobe represents an old infarct, as shown on MRI July 10, 2013. Mastoid air cells are largely opacified. Mast oid fluid was shown on previous MRI as well. No acute hemorrhage is identified. Ventricular system is unremarkable. Basal cisterns are patent. There are no extra axial collections. The bilateral M1, M2, A1 and A2 segments are patent. There is no intracranial aneurysm. No central vessel occlusion is identified. Left vertebral artery is dominant and patent. Posterior circulation is intact. IMPRESSION: 1. No central vessel occlusion. No intracranial aneurysm. 2. Old left occipital lobe infarct. 3. Bilateral mastoid effusions, likely chronic. ACT 112: Negative or not required by law. Electronically signed by: Misael Marsh M.D. 10/27/2023 1:50 PM Neck CTA 10/27/23 13:04 CT ANGIOGRAPHY OF THE NECK WITH CONTRAST CLINICAL HISTORY: h/o CVA, slurred speech COMPARISON STUDY: Carotid ultrasound July 10, 2013. Technique: CT angiography of the carotid and vertebral arteries was obtained using Optiray and 3D reconstruction on an independent workstation. NASCET criteria was utilized. Automated exposure control was utilized for the study. A dose lowering technique was utilized adhering to the principles of ALARA. CT DOSE: 1458.97 mGy.cm Findings: Visualized portions of the lung apices are unremarkable. 2.1 cm right lobe hypodense thyroid nodule is incidentally noted. No cervical spine fractures are identified. The bilateral common carotid, cervical internal carotid and vertebral arteries are patent. This exam is mildly compromised by artifact. No stenosis, dissection or aneurysm within the major vessels of the neck is identified. Carotid bifurcations are patent. CTA of the head will be reported separately. There is minimal plaque within the proximal left internal carotid artery. IMPRESSION: No stenosis or dissection within the bilateral common carotid, cervical internal carotid or vertebral arteries. ACT 112: Negative or not required by law. Electronically signed by: Misael Marsh M.D. 10/27/2023 1:43 PM ECG Additional Comments: Junctional rhythm Left axis deviation Incomplete right bundle branch block Possible Anterior infarct , age undetermined Abnormal ECG When compared with ECG of 14-MAY-2022 11:50, Junctional rhythm has replaced Sinus rhythm Incomplete right bundle branch block is now Present Borderline criteria for Anterior infarct are now Present Code Status & VTE Plan Code Status Full code VTE Prophylaxis Plan VTE Prophylaxis will be ordered: Yes Supervising Physician Co-Signing Physician Notes I personally saw and examined the patient. I verified all south points and agree with Hany Dawn PA-C with the following exceptions and/or additions: 62 year old male presents to the ER with slurred speech, increased confusion, decreased balance, hallucinations. No tremors, bradykinesia, shuffling gait. No respiratory, gastrointestinal or urinary symptoms. O/E HS RRR, no murmurs, Chest CTAB, Abdo SNT, no focal motor/sensory neuropathy, CN 2->12 intact A/P Possible UTI - based on UA and altered mental state, ceftriaxone, follow up urine cultures. Hypothyroidism - 5.812, recently missed doses, continue his usual levothyroxine dose Phenytoin toxicity - unlikely causing his symptoms just at prior mildly elevated level but irregardless warrants reducing from 400 total daily to 300mg total daily dose Hallucinations, AMS, slurred speech - Brain MRI negative, consider neurology evaluation if not improving with above interventions PG Care Time/CCT Total # of Minutes Spent Total Time Spent with Patient: Total time spent is greater than 50% in coordination of care (as documented) at patient's floor/unit and/or counseling patient: Coding [place] [address] INT INP/OBS CARE 3/75MIN Patient Type Established Medical Decision Making High Complexity Diagnoses Slurred speech R47.81 Daytime sleepiness R40.0 Ambulatory dysfunction R26.2 Leg swelling M79.89 Confusion R41.0 Abnormal urinalysis R82.90 Seizure R56.9 Hypothyroid E03.9 Hypertension I10 Memory loss R41.3
[2023-10-27] MEDS ORDERED: PHARMACIST DISCHARGE MED REC CONSULT PRN (16:11)
--- NOTE | 2023-10-27 17:24 | Ultrasound Report ---
RIGHT LOWER EXTREMITY VENOUS DOPPLER CLINICAL HISTORY: swelling COMPARISON STUDY: Right lower extremity venous Doppler ultrasound August 08, 2020. TECHNIQUE: Sonography of the deep venous system of the right lower extremity was performed. Compress ion and augmentation were evaluated. FINDINGS: There is no deep venous thrombus within the right lower extremity. Thrombus within the righ t greater saphenous vein extends from the upper to lower calf. This is similar to ultrasound of [facility] 2020. This is chronic. A right popliteal cyst measures 5.5 x 2 x 4.6 cm. IMPRESSION: 1. No evidence of deep venous thrombus within the right lower extremity. 2. Chronic superficial thrombus within the right greater saphenous vein, as shown on ultrasound of [facility] 2020. 3. 5.5 x 2 x 4.6 cm right popliteal cyst. ACT 112: Negative or not required by law. Electronically signed by: Misael Marsh M.D. 10/27/2023 5:22 PM
[2023-10-27] MEDS: Patient's HEIGHT &/or WEIGHT Needed STA (17:40)
[2023-10-27 18:27] LABS: Amphetamines+Metham, Urine Neg (Neg); Barbiturates, Urine Neg (Neg); Benzodiazepine, Urine Neg (Neg); Cocaine, Urine Neg (Neg); MDMA (Ecstacy), Urine Neg (Neg); Marijuana, Urine Neg (Neg); Methadone, Urine Neg (Neg); Opiate, Urine Neg (Neg); Phencyclidine, Urine Neg (Neg)
[2023-10-27] MEDS: GADOBUTROL 65ML VIAL IV ONE (18:32)
--- NOTE | 2023-10-27 19:03 | Magnetic Resonance Report ---
MRI OF THE BRAIN WITHOUT AND WITH IV CONTRAST CLINICAL HISTORY: slurred speech, ambulatory dysfunction COMPARISON STUDY: MRI of the brain July 10, 2013. Head CT and CTA of the head performed earlier today. TECHNIQUE: Utilizing a 1.5 Tricia magnet and dedicated coil, multiplanar, multiecho imaging of the br ain was performed pre and postcontrast administration. IV administration of 14 mL [address] contra st was uneventful. FINDINGS: There are no foci of restricted diffusion to suggest acute infarct. No acute intracranial h emorrhage, midline shift or mass effect is present. Encephalomalacia within the left occipital lobe i s unchanged since MRI of July 10, 2013. This favors an old infarct. Ventricular system is stable. Basal cisterns are patent. There are no extra axial collections. No intracranial mass or pathologic enhancement is present. Flow-voids for the major intracranial vessels are present. Bilateral mastoid effusions are similar to previous MRI. These are likely chronic. Calvarial signal is normal. IMPRESSION: 1. No acute intracranial findings. 2. No intracranial mass or pathologic enhancement. 3. Old left occipital lobe infarct. ACT 112: Negative or not required by law. Electronically signed by: Misael Marsh M.D. 10/27/2023 7:01 PM
[2023-10-27] MEDS: PHENYTOIN SODIUM ER 100 MG CAP PO SCH (20:06)
[2023-10-27] MEDS: PANTOprazole 40 MG TAB PO SCH (20:06)
[2023-10-27] MEDS: PLASMA-LYTE A 1,000 ML IV SCH (20:06)
[2023-10-27] MEDS: SIMVASTATIN 40 MG TAB PO SCH (20:07)
[2023-10-28 05:58] LABS: Allen Test Pos (Pos); Base Excess ABG 5.2 mEq/L (-9-1.8); HCO3 ABG 30 mmol/L (19-24); PCO2 ABG 43 mmHg (35-46); PO2 ABG 78 mmHg (80-95); pH ABG 7.45 (7.35-7.45)
[2023-10-28 06:18] LABS: Basophils # (auto) 0.03 K/uL (0.00-0.20); Basophils % (auto) 0.6 %; Eosinophils # (auto) 0.19 K/uL (0.00-0.50); Eosinophils % (auto) 3.9 %; Hematocrit (blood only) 39.3 % (42.0-52.0); Hemoglobin 13.1 g/dl (14.0-18.0); Immature Granulocytes # (auto) 0.01 K/uL (0.01-0.20); Immature Granulocytes % (auto) 0.2 %; Lymphocytes # (auto) 1.51 K/uL (1.20-3.40); Lymphocytes % (auto) 30.7 %; Mean Corpuscular Hemoglobin 29.4 pg (25.0-34.0); Mean Corpuscular Hgb Conc 33.3 g/dL (32.0-36.0); Mean Corpuscular Volume 88.1 fL (80.0-100.0); Mean Platelet Volume 8.8 fL (9.4-12.4); Monocytes # (auto) 0.29 K/uL (0.11-0.59); Monocytes % (auto) 5.9 %; Neutrophils # (auto) 2.89 K/uL (1.40-6.50); Neutrophils % (auto) 58.7 %; Platelet Count 139 K/uL (130-400); RDW Coefficient of Variation 15.2 % (11.5-14.5); Red Blood Count 4.46 M/uL (4.70-6.10); White Blood Count 4.92 K/ul (4.8-10.8)
[2023-10-28 06:23] LABS: Albumin Globulin Ratio 1.5 (0.9-2); Albumin Level 3.5 gm/dl (3.4-5.0); BUN Creatinine Ratio 20.8 (10-20); Bilirubin,Total 0.4 mg/dl (0.2-1.0); Calcium 9.1 mg/dl (8.6-10.3); Creatinine Clr Calc Pharmacy 138.8 ml/min; Est GFR (African American) 111.2 ml/min; Est GFR (Non-African American) 95.9 ml/min; Globulin 2.4 gm/dl (2.5-4.0); Magnesium 1.9 mg/dl (1.7-2.4); Potassium 3.8 mmol/L (3.5-5.1); Total Protein 5.9 gm/dl (6.0-8.3)
[2023-10-28] MEDS: LEVOTHYROXINE SODIUM 25 MCG TABLET PO SCH (06:36)
[2023-10-28] MEDS: LEVOTHYROXINE SODIUM 150 MCG TABLET PO SCH (06:36)
[2023-10-28 08:11] LABS: Toxic Vacuolation 2+
[2023-10-28] MEDS: lisinopril 40 MG TAB PO SCH (08:30)
[2023-10-28] MEDS: CLOPIDOGREL BISULFATE 75 MG TAB PO SCH (08:30)
[2023-10-28] MEDS: ASPIRIN 81 MG CHEW PO SCH (08:31)
[2023-10-28] MEDS: TAMSULOSIN HCL 0.4 MG CAP PO SCH (08:31)
[2023-10-28] MEDS: OXYBUTYNIN CHLORIDE XL 5 MG TABCR PO SCH (08:31)
[2023-10-28] MEDS: cefTRIAXone SODIUM 2,000 MG in DEXTROSE 5 % MINI-B 50 ML IV SCH (16:10)
--- NOTE | 2023-10-28 17:01 | Hospitalist Progress Note ---
Date of Service October 28, 2023 Assessment & Plan (1) Slurred speech: Plan: -Symptoms have been progressing over the past 2-3 weeks -Does have hx of previous CVA approximately 20 years ago -Was seen by his PCP on 10/18 for similar but less severe symptoms, TSH and Pheny toin levels were elevated at that time >He resumed his Levothyroxine and TSH today with free T4 are stable > states that Phenytoin dose and frequency were not changed -At this time the patient has many possible etiologies for his neurologic symptoms including recurrent CVA, Phenytoin toxicity, possible UTI, substance abuse, early onset dementia, undiagnosed ASHISH, Narcolepsy -CT head/brain wo con and CTA of the head/neck were negative for acute findings -CXR negative for acute findings -UA is equivocal at this time, will need to follow urine culture -Phenytoin level is in process Brain MRI was negative TTE is pending Urine drug screen is negative Tickborne panel pending -Fall/aspiration/seizure precautions Patient is slightly improved today per . The phenytoin dose has been reduced slightly. Consult neurology -Continue aspirin and plavix for now -AM CBC, CMP, mag, PT/INR (2) Daytime sleepiness: Plan: -Symptoms seem consistent with ASHISH Patient will need an outpatient sleep study done (3) Ambulatory dysfunction: Plan: -See slurred speech -PT/OT consulted ordered (4) Leg swelling: Plan: Bilateral lower extremity venous duplex is negative for DVT (5) Confusion: Plan: -See slurred speech plan (6) Abnormal urinalysis: Plan: -UA is equivocal at this time -Difficulty to get reliable his from patient regarding urinary symptoms at this time -S/P one dose of Ceftriaxone in the ED -Will continue ceftriaxone for now Urine culture growing gram-positive cocci (7) Seizure: Plan: -Family denies recent seizure like activity -Has history of one seizure after his first CVA, has been stable since starting Phenytoin -Called the lab regarding his Phenytoin level, unfortunately it is a send out to [facility] >At this time reduced his dose from 200 mg BID to 100 mg TID as completely holding it could lead to seizures -Continue seizure precautions (8) Hypothyroid: Plan: -TSH improving, free T4 WNL today -Continue levothyroxine (9) Hypertension: Plan: -Stable (10) Memory loss: Plan: -Will restart Donepezil to see if this causes any improvement Admission and Anticipated Discharge Date Admission Date: October 27, 2023 Subjective Per , patient is doing slightly better. His speech is slightly less slurred. He is less weak in general. But he is still having trouble walking. Review of Systems Review of Systems: All systems reviewed & are unremarkable except as noted in Subjective Physical Exam Physical Exam: General: Awake, conversant Heart: S1, S2/regular rate and rhythm, no murmur rubs or gallops Lungs: Clear to auscultation bilaterally. Normal effort Abdomen: Soft/nontender/nondistended. No hepatosplenomegaly Extremities: No clubbing/cyanosis. No edema Behavior: Appropriate, cooperative Results & Data Results & Data Vital Signs (Past 12 Hours) Vital Signs Temp Pulse Pulse Resp BP BP Pulse Ox 10/28/23 14:55 36.9 C 75 20 155/76 H 98 10/28/23 14:02 36.9 C 61 20 155/86 H 98 10/28/23 07:30 45 L 10/28/23 07:15 10/28/23 07:15 36.9 C 54 L 20 123/76 93 10/28/23 07:15 Pulse Ox O2 Del Method O2 Del Method 10/28/23 14:55 Room Air 10/28/23 14:02 Room Air 10/28/23 07:30 10/28/23 07:15 Room Air 10/28/23 07:15 Room Air 10/28/23 07:15 93 Room Air Laboratory Results Abnormal lab results 10/28/23 Range/Units 05:33 RBC 4.46 L (4.70-6.10) M/uL Hgb 13.1 L (14.0-18.0) g/dl Hct 39.3 L (42.0-52.0) % RDW Std Deviation 49.0 H (36.4-46.3) fL RDW Coeff of Gloria 15.2 H (11.5-14.5) % MPV 8.8 L (9.4-12.4) fL ABG pO2 78 L (80-95) mmHg ABG HCO3 30 H (19-24) mmol/L ABG O2 Saturation 97.0 H (90-95) % ABG Base Excess 5.2 H (-9-1.8) mEq/L BUN/Creatinine Ratio 20.8 H (10-20) Glucose 116 H (70-99(Fasting)) mg/dl Total Protein 5.9 L (6.0-8.3) gm/dl Globulin 2.4 L (2.5-4.0) gm/dl Diagnostic Findings Neck CTA 10/27/23 13:04 CT ANGIOGRAPHY OF THE NECK WITH CONTRAST CLINICAL HISTORY: h/o CVA, slurred speech COMPARISON STUDY: Carotid ultrasound July 10, 2013. Technique: CT angiography of the carotid and vertebral arteries was obtained using Optiray and 3D reconstruction on an independent workstation. NASCET criteria was utilized. Automated exposure control was utilized for the study. A dose lowering technique was utilized adhering to the principles of ALARA. CT DOSE: 1458.97 mGy.cm Findings: Visualized portions of the lung apices are unremarkable. 2.1 cm right lobe hypodense thyroid nodule is incidentally noted. No cervical spine fractures are identified. The bilateral common carotid, cervical internal carotid and vertebral arteries are patent. This exam is mildly compromised by artifact. No stenosis, dissection or aneurysm within the major vessels of the neck is identified. Carotid bifurcations are patent. CTA of the head will be reported separately. There is minimal plaque within the proximal left internal carotid artery. IMPRESSION: No stenosis or dissection within the bilateral common carotid, cervical internal carotid or vertebral arteries. ACT 112: Negative or not required by law. Electronically signed by: Misael Marsh M.D. 10/27/2023 1:43 PM Venous Doppler Study 10/27/23 15:44 RIGHT LOWER EXTREMITY VENOUS DOPPLER CLINICAL HISTORY: swelling COMPARISON STUDY: Right lower extremity venous Doppler ultrasound August 08, 2020. TECHNIQUE: Sonography of the deep venous system of the right lower extremity was performed. Compression and augmentation were evaluated. FINDINGS: There is no deep venous thrombus within the right lower extremity. Thrombus within the right greater saphenous vein extends from the upper to lower calf. This is similar to ultrasound of August 08, 2020. This is chronic. A right popliteal cyst measures 5.5 x 2 x 4.6 cm. IMPRESSION: 1. No evidence of deep venous thrombus within the right lower extremity. 2. Chronic superficial thrombus within the right greater saphenous vein, as shown on ultrasound of August 08, 2020. 3. 5.5 x 2 x 4.6 cm right popliteal cyst. ACT 112: Negative or not required by law. Electronically signed by: Misael Marsh M.D. 10/27/2023 5:22 PM Brain MRI 10/27/23 16:49 MRI OF THE BRAIN WITHOUT AND WITH IV CONTRAST CLINICAL HISTORY: slurred speech, ambulatory dysfunction COMPARISON STUDY: MRI of the brain July 10, 2013. Head CT and CTA of the head performed earlier today. TECHNIQUE: Utilizing a 1.5 Tricia magnet and dedicated coil, multiplanar, multiecho imaging of the brain was performed pre and postcontrast administration. IV administration of 14 mL [address] contrast was uneventful. FINDINGS: There are no foci of restricted diffusion to suggest acute infarct. No acute intracranial hemorrhage, midline shift or mass effect is present. Encephalomalacia within the left occipital lobe is unchanged since MRI of July 10, 2013. This favors an old infarct. Ventricular system is stable. Basal cisterns are patent. There are no extra axial collections. No intracranial mass or pathologic enhancement is present. Flow-voids for the major intracranial vessels are present. Bilateral mastoid effusions are similar to previous MRI. These are likely chronic. Calvarial signal is normal. IMPRESSION: 1. No acute intracranial findings. 2. No intracranial mass or pathologic enhancement. 3. Old left occipital lobe infarct. ACT 112: Negative or not required by law. Electronically signed by: Misael Marsh M.D. 10/27/2023 7:01 PM PG Care Time/CCT Total # of Minutes Spent Total Time Spent with Patient: Total time spent is greater than 50% in coordination of care (as documented) at patient's floor/unit and/or counseling patient: Coding Level of Care Code 61268 SUB INP/OBS CARE 2/35MIN Diagnoses Slurred speech R47.81 Daytime sleepiness R40.0 Ambulatory dysfunction R26.2 Leg swelling M79.89 Confusion R41.0 Abnormal urinalysis R82.90 Seizure R56.9 Hypothyroid E03.9 Hypertension I10 Memory loss R41.3
[2023-10-29 06:28] LABS: Basophils # (auto) 0.03 K/uL (0.00-0.20); Basophils % (auto) 0.5 %; Eosinophils # (auto) 0.25 K/uL (0.00-0.50); Hematocrit (blood only) 43.1 % (42.0-52.0); Hemoglobin 14.1 g/dl (14.0-18.0); Immature Granulocytes # (auto) 0.01 K/uL (0.01-0.20); Immature Granulocytes % (auto) 0.2 %; Lymphocytes # (auto) 1.46 K/uL (1.20-3.40); Lymphocytes % (auto) 23.4 %; Mean Corpuscular Hemoglobin 28.8 pg (25.0-34.0); Mean Corpuscular Hgb Conc 32.7 g/dL (32.0-36.0); Mean Corpuscular Volume 88.1 fL (80.0-100.0); Mean Platelet Volume 8.8 fL (9.4-12.4); Monocytes % (auto) 6.4 %; Neutrophils % (auto) 65.5 %; Platelet Count 145 K/uL (130-400); RDW Coefficient of Variation 15.2 % (11.5-14.5); RDW Standard Deviation 48.9 fL (36.4-46.3); Red Blood Count 4.89 M/uL (4.70-6.10); White Blood Count 6.25 K/ul (4.8-10.8)
[2023-10-29 06:45] LABS: Albumin Globulin Ratio 1.5 (0.9-2); Bilirubin,Total 0.4 mg/dl (0.2-1.0); Calcium 9.5 mg/dl (8.6-10.3); Est GFR (African American) 91.8 ml/min; Est GFR (Non-African American) 79.2 ml/min; Globulin 2.7 gm/dl (2.5-4.0); Potassium 4.1 mmol/L (3.5-5.1); Total Protein 6.7 gm/dl (6.0-8.3)
--- NOTE | 2023-10-29 06:55 | Electrocardiogram Report ---
Test Reason : Blood Pressure : / mmHG Vent. Rate : 052 BPM Atrial Rate : 000 BPM P-R Int : 000 ms QRS Dur : 092 ms QT Int : 420 ms P-R-T Axes : 000 -39 022 degrees QTc Int : 390 ms Poor data quality, interpretation may be adversely affected Sinus bradycardia Left axis deviation Incomplete right bundle branch block Possible Anterior infarct , age undetermined Abnormal ECG When compared with ECG of 14-MAY-2022 11:50, Incomplete right bundle branch block is now Present Borderline criteria for Anterior infarct are now Present Confirmed by Tyron Pizarro ([id number]) on 10/29/2023 6:55:00 AM Referred By: Confirmed By:Tyron Pizarro
[2023-10-29] MEDS: SULFAMETHOXAZOLE/TRIMETHOPRIM DS 800/160MG TAB PO SCH (08:16)
[2023-10-29] MEDS: ENOXAPARIN INJ 40 MG/0.4 ML SYR SQ SCH (08:17)
--- NOTE | 2023-10-29 11:07 | Neurology Consultation ---
Date of Consultation October 29, 2023 Assessment & Plan (1) Slurred speech: History of Present Illness Attending Physician: Gladys Goodson MD History of Present Illness pt this morning feeling still sleepy but easily awaken and making jokes. fluent speech but at times some slurring. walking ok without much assistance. pt , he has had speech and being sleepy for more than few months now. pt has been on dilantin for long time (200mg po bid) after his stroke back in 2003. no seizures since that time. pt's mri brain negative. dilantin noted for high at 25.6. pt also with chronic insomnia for life long and worse last few months. admission HPI: Bharathi is a 62 year old male with a PMH significant for Seizure disorder (on Phenytoin), BPH, previous CVA, memory loss (on Donepezil), hypot hyroidism, HTN, and GERD who presented to the [facility] ED on 10/27/23 with multiple complaints including slurred speech, ambulatory dysfunction, and swollen LEs. His Phenytoin level las week was reportedly 12. He was noted to be bradycardic with HR in the 40-50s but was otherwise stable. Labs were significant for a UA which was nitrite positive with 1+ LE, >30 WBC, 10-30 hayline casts, negative for bacteria, and epithelial cells WNL, and Phenytoin level in process. CT of the head/brain wo con and CTA of the head/neck were read as negative for acute findings. Chest galdino was negative for acute findings. Prior to admission the patient was given a dose of Ceftriaxone. At the time of the exam the patient was sitting in the bedside chair, sleeping, and leaning to the right. His and Daughter were also bedside, the majority of the history was obtained from the patient's and daughter. The patient was easy to rouse, he is slurring his words when speaking. states that over the past 2-3 weeks the patient has been experiencing a number of progressive symptoms including insomnia, increased daytime sleepiness with falling asleep frequently, slurred speech, ambulatory dysfunction, difficulty holding objects, and BL LE swelling. They explain that after the patient's first stroke, approximately 20 years ago he had residual short term memory issues, numbness on the dorsal aspect of the right foot, and residual BL visual loss of approximately 25% in each eye. The patient was seen by his PCP for these complaints on 10/19/23. Per the visit notes, the patient had been non-compliant with his levothyroxine and had run out of his prescription for Donepezil. Blood work was obtained at that time which showed a TSH of 12 without free T4 level. A phenytoin level was also obtained at that time and was elevated at 21. He was restarted on his Levothyroxine and his prescription for Donepezil was supposed to be refilled but there were issues with their previous pharmacy. The patient's states that they have not seen improvement in his symptoms since restarting the levothyroxine, in fact, symptoms have progress. Over the past week he has had multiple episodes of weakness in the BL upper extremities where he will suddenly drop items. He had one fall approximately 4 days ago where he tried to step over his who was on the ground cleaning up a spill. His foot caught her back causing him to fall, he did not hit his head or lose consciousness. The patient states he knows he is slurring his words and has been dropping items recent. He feels off balance when trying to ambulate. He denies recent headache, changes in visions, hearing, taste, smell, neck pain, chest pain, SOB, cough, abd pain, nausea, vomiting, diarrhea, dysuria, hematuria, melena, and other falls besides the one last week. He has felt his BL legs to be getting swollen compared to baseline over the past few weeks. When asked, his confirms that he has been taking his Phenytoin and levothyroxine as prescribed. There were no dosing changes made to his phenytoin after his last PCP visit. They explain that the patient has had issues with remembering the month and year since his last stroke. Prior to his these symptoms he was outside frequently doing yard work and cutting wood for their wood stove. He is a full code and his is his POA. They deny the patient having recent tobacco, alcohol, or other recreational drugs. He was previously tested for ASHISH and was reportedly negative, this was years ago. Allergies Allergy/AdvReac Type Severity Reaction Status Date / Time No Known Drug Allergies Allergy Unknown Verified 10/27/23 14:53 Home Medications Medication Instructions Recorded Confirmed Type aspirin 81 mg chewable tablet 81 mg PO QAM 05/14/22 10/27/23 History tadalafil 20 mg tablet (Cialis) 20 mg PO UD PRN sexual activity 05/14/22 10/27/23 History oxybutynin chloride 5 mg 5 mg PO DAILY #7 tabs 05/19/22 10/27/23 Rx tablet,extended release 24 hr (Ditropan XL) simvastatin 40 mg tablet 40 mg PO HS #90 tabs 01/06/23 10/27/23 Rx phenytoin sodium extended 100 mg 200 mg (2 x 100 mg) PO BID #120 01/18/23 10/27/23 Rx capsule caps tamsulosin 0.4 mg capsule 0.4 mg PO QAM #90 caps 03/15/23 10/27/23 Rx lisinopril 40 mg tablet 40 mg PO QAM #90 tabs 05/10/23 10/27/23 Rx omeprazole 20 mg capsule,delayed 20 mg PO BID #180 caps 06/07/23 10/27/23 Rx release clopidogrel 75 mg tablet 75 mg PO QAM 10/27/23 10/27/23 History levothyroxine 25 mcg tablet See Rx Instructions .Route .COMPLEX 10/27/23 10/27/23 History levothyroxine 300 mcg tablet See Rx Instructions .Route .COMPLEX 10/27/23 10/27/23 History vibegron 75 mg tablet (Gemtesa) 75 mg PO DAILY PRN Issues 10/27/23 10/27/23 History Urgency of urination Patient History Medical History History of BPH Hyperlipidemia Methylenetetrahydrofolate reductase deficiency Allergic rhinitis seasonal Superficial thrombophlebitis Deep vein blood clot of right lower extremity twice, ~4-5 years ago, came to [place] ER>on plavix and baby aspirin>f/u dr mares, [place] GERD (gastroesophageal reflux disease) Hypothyroid Seizure 2003, within 3 weeks from the 1 year anniversary of his stroke, [place] seizure>due to his stroke Hypertension CVA (cerebral vascular accident) 2002, [facility] [place]>25% blind in both eyes, short term memory loss, numbness tingling 2 fingers in RT hand, numbness in rt foot-residual symptoms; f/u PCP Surgical History History of esophagogastroduodenoscopy (EGD) Hx of colonoscopy History of repair of hiatal hernia original sx 03/1996; pt currently has a tear in the lining and his pancreas and stomach "float freely in his chest cavity" History of arthrodesis (1971) L4-L5 History of back surgery once at age 9 H/O hemorrhoidectomy Family History Father Acute myocardial infarction Myocardial infarction Grandmother (Maternal) Diabetes Family/Other Diabetes Mother Diabetes Brother COPD (chronic obstructive pulmonary disease) Congestive heart failure Brother No problems noted. Sister No problems noted. Son No problems noted. Daughter No problems noted. Denies family history of Colon cancer Ovarian cancer Prostate cancer Breast cancer Social History Smoking Status: Former smoker Age Quit Using Tobacco: 27; Second Hand Exposure: No; Do You Dip or Chew Tobacco: No; Hx Alcohol Use: No ("not for the last 35-40 years") Hx Substance Use: No Preferred Language: Andorran Communication Ability: Effective Visual Impairment: Limited Hearing Ability: Normal Crm Architect Required: No Beliefs That Will Affect Care: None marital status: Current Living Situation: Spouse current occupational status: retired current occupation: [employer] How many Children do You have: 2 Feels Safe at Home: Yes Childhood Exposure to Second-Hand Smoke: Yes Diet: regular Diet Comment: regular caffeine: Yes during the past year weight has: remained stable Dental Care, Regularly: Yes Physical Activity Frequency: Daily Seatbelt Use: always Sunscreen Use: No Assistive Devices: Glasses Exam (Neuro) Physical Exam: HEENT: normocephalic Neuro: Mental: AOx4, drowsy but aware of situation. fluent speech with some dysarthria at times., normal comprehension, no apraxia, no L/R confusion, no neglect CN: PERRL, Full EOM, symmetric face, intact sensation t/o face, midline T/U/P, 5/5 SCM/traps. Motor: No abnormal movements, normal tone and bulk, 5/5 t/o bilaterally Sens: intact to touch b/l grossly Coord: intact FNT b/l DTR: 2+ sym b/l Gait: intact grossly Impression: 62 yo male with chronic speech change with excessive daytime sleepiness in setting of prior left occipital stroke and seizure with likely UTI currently and hypothyroidism. MRI brain negative. His dilantin level is high and he likely had penitentiary dilantin toxicity related symptoms and worsen with UTI, donepezil and abnormal thyroid. dilantin interacts with levothyroxine and likely caused fluctuating thyroid level also. His chronic insomnia likely contributed to his overall symptoms. Recommendations: no need for dilantin for seizure precaution. it is very unusual that he was on dilantin this long. wean him of dilantin: decrease to 100mg po bid for 2 days and 100mg daily for 2 days and stop. do not restart aricept as it can also contribute to his symptoms and he does not need it. treat UTI close monitor thyroid level. educated and pt about my opinion this morning. please call again if new qeustion. Chart reviewed I have spent more than 50% educating patient about potential diagnosis and neurological evaluation and coordinating care with patient's treatment team. Total time spent (including chart review and coordination of care): 60 min (this includes chart review). Results & Data Vital Signs (Past 12 Hours) Vital Signs Temp Pulse Pulse Pulse Resp BP Pulse Ox 10/29/23 11:03 36.7 C 54 L 16 132/74 96 10/29/23 07:30 72 10/29/23 07:30 10/29/23 07:12 36.9 C 50 L 18 121/73 97 10/29/23 03:00 36.5 C 89 21 129/78 95 10/28/23 23:26 57 L O2 Del Method 10/29/23 11:03 Room Air 10/29/23 07:30 10/29/23 07:30 Room Air 10/29/23 07:12 Room Air 10/29/23 03:00 Room Air 10/28/23 23:26 PG Care Time/CCT Total # of Minutes Spent Total Time Spent with Patient: Total time spent is greater than 50% in coordination of care (as documented) at patient's floor/unit and/or counseling patient: Coding Level of Care Code 22925 IN/OBS CONSULT LVL 4,60M Diagnoses Slurred speech R47.81
--- NOTE | 2023-10-29 12:56 | Hospitalist Progress Note ---
Date of Service October 29, 2023 Assessment & Plan (1) Slurred speech: Plan: CT head, CTA head and neck negative Brain MRI negative TTE pending Urine drug screen negative Tickborne panel pending Urine culture growing coag negative staph. Started on Bactrim. Neurology on board. Most likely a combination of Dilantin toxicity (phenytoin level came back elevated at 25), UTI, hypothyroidism, donepezil Improving with reducing the dose of Dilantin (2) Phenytoin toxicity: Plan: Phenytoin level came back elevated at 25 Most likely secondary to phenytoin toxicity The patient had 1 episode of seizure decades ago after a stroke and was started on phenytoin then. Neurology recommends tapering phenytoin down Reduce dose to phenytoin 100 mg twice daily for 2 days then once daily for 2 days and then stop Most symptoms are most likely secondary to phenytoin toxicity including slurred speech, imbalance gait, cognitive impairment (3) Daytime sleepiness: Plan: Most likely secondary to phenytoin toxicity (4) Ambulatory dysfunction: Plan: -See slurred speech -PT/OT anticipates discharge to home with home health services (5) Leg swelling: Plan: Bilateral lower extremity venous duplex is negative for DVT (6) Confusion: Plan: -See slurred speech plan (7) Abnormal urinalysis: Plan: -UA is equivocal at this time -Difficulty to get reliable his from patient regarding urinary symptoms at this time -Urine culture grew coag negative staph Started on Bactrim (8) Seizure: Plan: -Family denies recent seizure like activity -Has history of one seizure after his first CVA, has been stable since starting Phenytoin Phenytoin now causing toxicity Neurology recommends tapering off. Ordered per recommendations -Continue seizure precautions (9) Hypothyroid: Plan: -TSH improving, free T4 WNL -Continue levothyroxine (10) Hypertension: Plan: -Stable (11) Memory loss: Plan: Will not start donepezil per neurology recommendation Admission and Anticipated Discharge Date Admission Date: October 27, 2023 Subjective Patient is doing better today. Per , the slurred speech has improved. He is walking better. He is cognitively doing better as well. Review of Systems Review of Systems: All systems reviewed & are unremarkable except as noted in Subjective Physical Exam Physical Exam: General: Awake, conversant Heart: S1, S2/regular rate and rhythm, no murmur rubs or gallops Lungs: Clear to auscultation bilaterally. Normal effort Abdomen: Soft/nontender/nondistended. No hepatosplenomegaly Extremities: No clubbing/cyanosis. No edema Behavior: Appropriate, cooperative Results & Data Results & Data Vital Signs (Past 12 Hours) Vital Signs Temp Pulse Pulse Pulse Resp BP Pulse Ox 10/29/23 11:03 36.7 C 54 L 16 132/74 96 10/29/23 07:30 72 10/29/23 07:30 10/29/23 07:12 36.9 C 50 L 18 121/73 97 10/29/23 03:00 36.5 C 89 21 129/78 95 O2 Del Method 10/29/23 11:03 Room Air 10/29/23 07:30 10/29/23 07:30 Room Air 10/29/23 07:12 Room Air 10/29/23 03:00 Room Air PG Care Time/CCT Total # of Minutes Spent Total Time Spent with Patient: Total time spent is greater than 50% in coordination of care (as documented) at patient's floor/unit and/or counseling patient: Coding Level of Care Code 53739 SUB INP/OBS CARE 2/35MIN Diagnoses Slurred speech R47.81 Phenytoin toxicity T42.0X1A Daytime sleepiness R40.0 Ambulatory dysfunction R26.2 Leg swelling M79.89 Confusion R41.0 Abnormal urinalysis R82.90 Seizure R56.9 Hypothyroid E03.9 Hypertension I10 Memory loss R41.3
[2023-10-29] MEDS: PHENYTOIN SODIUM ER 100 MG CAP PO SCH (20:38)
[2023-10-30 07:00] LABS: Albumin Globulin Ratio 1.5 (0.9-2); BUN Creatinine Ratio 19.4 (10-20); Bilirubin,Total 0.4 mg/dl (0.2-1.0); Calcium 9.6 mg/dl (8.6-10.3); Est GFR (African American) 100.2 ml/min; Est GFR (Non-African American) 86.5 ml/min; Globulin 2.7 gm/dl (2.5-4.0); Potassium 4.2 mmol/L (3.5-5.1); Total Protein 6.7 gm/dl (6.0-8.3)
[2023-10-30 08:19] LABS: Basophils # (auto) 0.02 K/uL (0.00-0.20); Basophils % (auto) 0.4 %; Eosinophils # (auto) 0.22 K/uL (0.00-0.50); Eosinophils % (auto) 4.4 %; Hematocrit (blood only) 42.8 % (42.0-52.0); Immature Granulocytes # (auto) 0.01 K/uL (0.01-0.20); Immature Granulocytes % (auto) 0.2 %; Lymphocytes # (auto) 1.53 K/uL (1.20-3.40); Lymphocytes % (auto) 30.7 %; Mean Corpuscular Hemoglobin 29.4 pg (25.0-34.0); Mean Corpuscular Hgb Conc 32.7 g/dL (32.0-36.0); Mean Corpuscular Volume 89.7 fL (80.0-100.0); Mean Platelet Volume 8.9 fL (9.4-12.4); Monocytes # (auto) 0.22 K/uL (0.11-0.59); Monocytes % (auto) 4.4 %; Neutrophils # (auto) 2.98 K/uL (1.40-6.50); Neutrophils % (auto) 59.9 %; Platelet Count 162 K/uL (130-400); RDW Standard Deviation 49.1 fL (36.4-46.3); Red Blood Count 4.77 M/uL (4.70-6.10); White Blood Count 4.98 K/ul (4.8-10.8)
--- NOTE | 2023-10-30 12:24 | Hospitalist Progress Note ---
Date of Service October 30, 2023 Assessment & Plan (1) Slurred speech: Plan: CT head, CTA head and neck negative Brain MRI negative TTE pending Urine drug screen negative Tickborne panel pending Urine culture growing coag negative staph. Started on Bactrim. Neurology on board. Most likely a combination of Dilantin toxicity (phenytoin level came back elevated at 25), UTI, hypothyroidism, donepezil Improving with reducing the dose of Dilantin (2) Phenytoin toxicity: Plan: Phenytoin level came back elevated at 25 Most likely secondary to phenytoin toxicity The patient had 1 episode of seizure decades ago after a stroke and was started on phenytoin then. Neurology recommends tapering phenytoin down Reduce dose to phenytoin 100 mg twice daily for 2 days (10/28 and 10/29) then once daily for 2 days (starting 10/30) and then stop Neurology did not recommend any other antiseizure medication in place of phenytoin. Most symptoms are most likely secondary to phenytoin toxicity including slurred speech, imbalance gait, cognitive impairment (3) Daytime sleepiness: Plan: Most likely secondary to phenytoin toxicity (4) Ambulatory dysfunction: Plan: -See slurred speech -PT/OT anticipates discharge to home with home health services (5) Leg swelling: Plan: Bilateral lower extremity venous duplex is negative for DVT (6) Confusion: Plan: -See slurred speech plan (7) Abnormal urinalysis: Plan: -UA is equivocal at this time -Difficulty to get reliable his from patient regarding urinary symptoms at this time -Urine culture grew coag negative staph Started on Bactrim (8) Seizure: Plan: -Family denies recent seizure like activity -Has history of one seizure after his first CVA, has been stable since starting Phenytoin Phenytoin now causing toxicity Neurology recommends tapering off. Ordered per recommendations -Continue seizure precautions (9) Hypothyroid: Plan: -TSH improving, free T4 WNL -Continue levothyroxine (10) Hypertension: Plan: -Stable (11) Memory loss: Plan: Will not start donepezil per neurology recommendation Admission and Anticipated Discharge Date Admission Date: October 27, 2023 Subjective Patient feels better overall. He says that he went for a walk and felt more stable walking today. No seizure activity. Review of Systems Review of Systems: All systems reviewed & are unremarkable except as noted in Subjective Physical Exam Physical Exam: General: Awake, conversant Heart: S1, S2/regular rate and rhythm, no murmur rubs or gallops Lungs: Clear to auscultation bilaterally. Normal effort Abdomen: Soft/nontender/nondistended. No hepatosplenomegaly Extremities: No clubbing/cyanosis. No edema Behavior: Appropriate, cooperative Results & Data Results & Data Vital Signs (Past 12 Hours) Vital Signs Temp Pulse Pulse Pulse Resp BP Pulse Ox 10/30/23 11:26 36.8 C 50 L 17 126/75 94 10/30/23 08:02 48 L 10/30/23 07:41 36.5 C 50 L 18 138/82 97 10/30/23 03:00 36.5 C 48 L 22 120/65 94 O2 Del Method 10/30/23 11:26 Room Air 10/30/23 08:02 10/30/23 07:41 Room Air 10/30/23 03:00 Room Air Laboratory Results Abnormal lab results 10/30/23 10/30/23 Range/Units 06:14 07:56 RDW Std Deviation 49.1 H (36.4-46.3) fL RDW Coeff of Gloria 15.0 H (11.5-14.5) % MPV 8.9 L (9.4-12.4) fL Glucose 110 H (70-99(Fasting)) mg/dl PG Care Time/CCT Total # of Minutes Spent Total Time Spent with Patient: Total time spent is greater than 50% in coordination of care (as documented) at patient's floor/unit and/or counseling patient: Coding Level of Care Code 96049 SUB INP/OBS CARE 2/35MIN Diagnoses Slurred speech R47.81 Phenytoin toxicity T42.0X1A Daytime sleepiness R40.0 Ambulatory dysfunction R26.2 Leg swelling M79.89 Confusion R41.0 Abnormal urinalysis R82.90 Seizure R56.9 Hypothyroid E03.9 Hypertension I10 Memory loss R41.3
[2023-10-30 15:55] VITALS: RESP 18
[2023-10-31 02:07] LABS: Babesia microti DNA Not Detected (Not Detected)
[2023-10-31 15:04] VITALS: TEMP 97.9; O2SAT 97
[2023-10-31 15:11] VITALS: PULSE 50
--- NOTE | 2023-10-31 16:52 | Discharge Summary ---
Date of Service October 31, 2023 Admission HPI Per Admitting Provider Bharathi is a 62 year old male with a PMH significant for Seizure disorder (on Phenytoin), BPH, previous CVA, memory loss (on Donepezil), hypothyroidism, HTN, and GERD who presented to the [facility] ED on 10/27/23 with multiple complaints including slurred speech, ambulatory dysfunction, and swollen LEs. His Phenytoin level las week was reportedly 12. He was noted to be bradycardic with HR in the 40-50s but was otherwise stable. Labs were significant for a UA which was nitrite positive with 1+ LE, >30 WBC, 10-30 hayline casts, negative for bacteria, and epithelial cells WNL, and Phenytoin level in process. CT of the head/brain wo con and CTA of the head/neck were read as negative for acute findings. Chest galdino was negative for acute findings. Prior to admission the patient was given a dose of Ceftriaxone. At the time of the exam the patient was sitting in the bedside chair, sleeping, and leaning to the right. His and Daughter were also bedside, the majority of the history was obtained from the patient's and daughter. The patient was easy to rouse, he is slurring his words when speaking. states that over the past 2-3 weeks the patient has been experiencing a number of progressive symptoms including insomnia, increased daytime sleepiness with falling asleep frequently, slurred speech, ambulatory dysfunction, difficulty holding objects, and BL LE swelling. They explain that after the patient's first stroke, approximately 20 years ago he had residual short term memory issues, numbness on the dorsal aspect of the right foot, and residual BL visual loss of approximately 25% in each eye. The patient was seen by his PCP for these complaints on 10/19/23. Per the visit notes, the patient had been non-compliant with his levothyroxine and had run out of his prescription for Donepezil. Blood work was obtained at that time which showed a TSH of 12 without free T4 level. A phenytoin level was also obtained at that time and was elevated at 21. He was restarted on his Levothyroxine and his prescription for Donepezil was supposed to be refilled but there were issues with their previous pharmacy. The patient's states that they have not seen improvement in his symptoms since restarting the levothyroxine, in fact, symptoms have progress. Over the past week he has had multiple episodes of weakness in the BL upper extremities where he will suddenly drop items. He had one fall approximately 4 days ago where he tried to step over his who was on the ground cleaning up a spill. His foot caught her back causing him to fall, he did not hit his head or lose consciousness. The patient states he knows he is slurring his words and has been dropping items recent. He feels off balance when trying to ambulate. He denies recent headache, changes in visions, hearing, taste, smell, neck pain, chest pain, SOB, cough, abd pain, nausea, vomiting, diarrhea, dysuria, hematuria, melena, and other falls besides the one last week. He has felt his BL legs to be getting swollen compared to baseline over the past few weeks. When asked, his confirms that he has been taking his Phenytoin and levothyroxine as prescribed. There were no dosing changes made to his phenytoin after his last PCP visit. They explain that the patient has had issues with remembering the month and year since his last stroke. Prior to his these symptoms he was outside frequently doing yard work and cutting wood for their wood stove. He is a full code and his is his POA. They deny the patient having recent tobacco, alcohol, or other recreational drugs. He was previously tested for ASHISH and was reportedly negative, this was years ago. Please refer to Dr. Lebron's attestation for any changes to the treatment plan Principal Diagnosis dilantin toxicity Discharge Exam heas atraumatic neck is supple lungs CTA heart S1S2 regular abdomen soft, NT, ND, BS present neuro AAO x 3 Discharge Data Allergies Allergy/AdvReac Type Severity Reaction Status Date / Time No Known Drug Allergies Allergy Unknown Verified 10/27/23 14:53 Consultations 10/27/23 16:11 ED Decision to Admit Stat 10/28/23 14:56 Consult Neurology Routine Ordered Studies 10/27/23 13:04 CT angio head w con Stat CT angio neck with con Stat CT head/brain wo con Stat 10/27/23 15:44 US venous doppler LE RT Stat 10/27/23 16:49 MRI Brain [MR brain wo/w con] Stat Hospital Course (1) Slurred speech: CT head, CTA head and neck negative Brain MRI negative TTE pending Urine drug screen negative Tickborne panel pending Urine culture growing coag negative staph. Started on Bactrim. Neurology on board. Most likely a combination of Dilantin toxicity (phenytoin level came back elevated at 25), UTI, hypothyroidism, donepezil Improving with reducing the dose of Dilantin - level of Dilantin was repeated on 10/30 , test is sent out, since neurologist does not think patient has seizures anymore, will stop Dilantin, stable for discharge (2) Phenytoin toxicity: Phenytoin level came back elevated at 25 Most likely secondary to phenytoin toxicity The patient had 1 episode of seizure decades ago after a stroke and was started on phenytoin then. Neurology recommends tapering phenytoin down Reduce dose to phenytoin 100 mg twice daily for 2 days (10/28 and 10/29) then once daily for 2 days (starting 10/30) and then stop Neurology did not recommend any other antiseizure medication in place of phenytoin. Most symptoms are most likely secondary to phenytoin toxicity including slurred speech, imbalance gait, cognitive impairment (3) Daytime sleepiness: Most likely secondary to phenytoin toxicity (4) Ambulatory dysfunction: -See slurred speech -PT/OT anticipates discharge to home with home health services (5) Leg swelling: Bilateral lower extremity venous duplex is negative for DVT (6) Confusion: -See slurred speech plan (7) Abnormal urinalysis: -UA is equivocal at this time -Difficulty to get reliable his from patient regarding urinary symptoms at this time -Urine culture grew coag negative staph Started on Bactrim (8) Seizure: -Family denies recent seizure like activity -Has history of one seizure after his first CVA, has been stable since starting Phenytoin Phenytoin now causing toxicity Neurology recommends tapering off. Ordered per recommendations -Continue seizure precautions (9) Hypothyroid: -TSH improving, free T4 WNL -Continue levothyroxine (10) Hypertension: -Stable (11) Memory loss: Will not start donepezil per neurology recommendation Total Time Total Time Spent Total Time Spent (In Minutes): 35 Discharge Plan Discharge Items Patient Disposition: Home - Self-Care Reason For Visit: SLURRED SPEECH, WEAKNESS, AMBULATORY DYSFUNCTION, Discharge Diagnosis: Dilantin toxicity Condition on Discharge: Good Activity: As commented below Activity Comment: no driving untill you see neurologist Non-emergency contact: Primary Care Provider and Neurologist Call non-emergency contact if: you have any medication questions and your symptoms worsen Follow-up/Referrals: Evon Forte MD [Primary Care Provider] - Diet: Heart Healthy Addtl Attending Provider Instructions: follow up with PCP Pending Studies at Discharge: Yes Studies:: Dilantin level Stand-Alone Forms: [employer], Smoking Cessation Medications and DC Order Prescriptions: Continued simvastatin 40 mg tablet 40 mg PO HS Qty: 90 1RF tamsulosin 0.4 mg capsule 0.4 mg PO QAM Qty: 90 3RF lisinopril 40 mg tablet 40 mg PO QAM Qty: 90 3RF Rx Instructions: TAKE 1 TABLET BY MOUTH EVERY DAY omeprazole 20 mg capsule,delayed release(DR/EC) 20 mg PO BID Qty: 180 3RF aspirin 81 mg Tablet,Chewable 81 mg PO QAM tadalafil [Cialis] 20 mg tablet 20 mg PO UD PRN (Reason: sexual activity) Rx Instructions: administer approximately 30min before sexual activity; do not use more than 1 dose per 24hrs oxybutynin chloride [Ditropan XL] 5 mg tablet extended release 24hr 5 mg PO DAILY Qty: 7 0RF clopidogrel 75 mg tablet 75 mg PO QAM Rx Instructions: take 1 tablet by mouth once daily levothyroxine 300 mcg tablet See Rx Instructions .ROUTE .COMPLEX Rx Instructions: Take 300mcg with 25mcg tab for total of 325mcg once every morning levothyroxine 25 mcg tablet See Rx Instructions .ROUTE .COMPLEX Rx Instructions: Take 25mcg with 300mcg tab for total of 325mcg once every morning Gemtesa 75 mg tablet 75 mg PO DAILY PRN (Reason: Issues w/ Urgency of urination) Discontinued phenytoin sodium extended 100 mg capsule 200 mg PO BID Qty: 120 11RF Discharge Orders: Discharge Order (Routine); Ordered 10/31/23 Ordered By: Amaya Antonio Admission Data Admit Date/Time: 10/27/23 16:10 Attending Provider: Amaya Antonio Admit Provider: Matt Lebron Primary Care Provider: Eovn Forte Other Providers: Matt Lebron; Nicho Graff; [facility] Coding Level of Care Code 56841 INP/OBS DISCH >30 MIN Diagnoses Slurred speech R47.81 Phenytoin toxicity T42.0X1A Daytime sleepiness R40.0 Ambulatory dysfunction R26.2 Leg swelling M79.89 Confusion R41.0 Abnormal urinalysis R82.90 Seizure R56.9 Hypothyroid E03.9 Hypertension I10 Memory loss R41.3
[2023-10-31 16:53] VITALS: BP 111/73
[2023-11-01] MEDS ORDERED: PHENYTOIN 100 MG/4 ML UDP PO SCH (09:00)
== END 2023-10-31 17:22 | disposition home health service (06) | DRG 918 ==
LOC: ED 10:24 → SUATTDRO 16:10 → EDINP 16:10 → 2E 10-28 16:17
DX: Z86.73 Personal history of transient ischemic attack (TIA), and cerebral infarction without residual deficits; Z91.148 Patient's other noncompliance with medication regimen for other reason; G47.33 Obstructive sleep apnea (adult) (pediatric); B95.8 Unspecified staphylococcus as the cause of diseases classified elsewhere; T42.0X1A Poisoning by hydantoin derivatives, accidental (unintentional), initial encounter; Z79.02 Long term (current) use of antithrombotics/antiplatelets; N39.0 Urinary tract infection, site not specified; Z86.718 Personal history of other venous thrombosis and embolism; R79.89 Other specified abnormal findings of blood chemistry; E72.12 Methylenetetrahydrofolate reductase deficiency; Z87.891 Personal history of nicotine dependence; Z79.890 Hormone replacement therapy; Z79.82 Long term (current) use of aspirin; M79.89 Other specified soft tissue disorders; E03.9 Hypothyroidism, unspecified; R00.1 Bradycardia, unspecified; Z83.3 Family history of diabetes mellitus; I10 Essential (primary) hypertension; R44.3 Hallucinations, unspecified; N40.0 Benign prostatic hyperplasia without lower urinary tract symptoms; Y92.009 Unspecified place in unspecified non-institutional (private) residence as the place of occurrence of the external cause; R26.2 Difficulty in walking, not elsewhere classified; R47.81 Slurred speech; I45.10 Unspecified right bundle-branch block; G47.00 Insomnia, unspecified